=== PATIENT | female | born 1945 | race Caucasian/White ===

== ENCOUNTER → 2017-04-18 | Outpatient (CLI) | payer BC ==
[~2017-04-18] MED LIST: ACET1TAB84 PO; CALC500C70 PO; CITA10TA8 PO; FENT25DI2 TD; FISHOIL PO; FLX10 PO; GABA800T PO; MULT-506 PO; OXYC-57 PO; PRLSR20 PO; [UNRECOGNIZED DRUG - OTHER]
--- NOTE | 2017-04-18 14:13 | MAMMOGRAPHY REPORT ---
BILATERAL DIGITAL SCREENING MAMMOGRAM WITH CAD: 04/18/2017 CLINICAL HISTORY: Routine screening. TECHNIQUE: Current study was also evaluated with a Computer Aided Detection (CAD) system. Bilateral CC and MLO views were obtained. COMPARISON: Comparison is made to exams dated: 04/17/2016 mammogram, 04/14/2015 mammogram, 04/13/2014 mammogram, 04/09/2013 mammogram, 04/02/2012 mammogram, and 03/27/2011 mammogram - [facility]. BREAST COMPOSITION: There are scattered areas of fibroglandular density in both breasts. FINDINGS: No suspicious masses, calcifications, or areas of architectural distortion are noted in ei ther breast. There has been no significant interval change compared to prior exams. Bilateral asymme tries are stable compared to prior exams. IMPRESSION: ACR BI-RADS CATEGORY 2: BENIGN There is no mammographic evidence of malignancy. A 1 year screening mammogram is recommended. The pa tient will receive written notification of the results. Approximately 10% of breast cancers are not detected with mammography. A negative mammographic report should not delay biopsy if a clinically suggestive mass is present. Lashay Govea M.D. ah/:04/18/2017 12:44:43 Geophysical Prospecting Surveyor: Stephie SNIDER(Tiana)(M), [facility] letter sent: Normal 1/2 BI-RADS Code: ACR BI-RADS Category 2: Benign
== END | disposition home or self-care (01) ==
LOC: C.MAMM 12:05
PROVIDERS: ATTEND Family Medicine
DX: Z12.31 Encounter for screening mammogram for malignant neoplasm of breast (principal)

== ENCOUNTER 2019-07-15 08:06 | Inpatient (IN) ==
--- NOTE | 2019-06-08 15:41 | PAT Medication Instructions ---
Medication Instructions Date of Service June 08, 2019 Home Medications atorvastatin 20 mg tablet 20 mg PO QAM calcium carbonate-vitamin D3 250 mg-125 unit tablet 1 tab PO BID citalopram 20 mg tablet 20 mg PO QAM cyclobenzaprine 10 mg tablet 10 mg PO HS PRN fentanyl 25 mcg/hr transdermal patch 1 patch TD Q72H gabapentin 800 mg tablet 800 mg PO TID multivitamin 1 cap PO DAILY omega 3-iio-wkr-fish oil 120 mg-180 mg-500 mg capsule 1 cap PO DAILY omeprazole magnesium 20 mg tablet,delayed release 20 mg PO QAM oxycodone 5 mg tablet 5 mg PO QID PRN acetaminophen [Tylenol 8 Hour] 2 tab PO BID diclofenac sodium 1 applic TOPICAL UD PRN Continue as directed fentanyl 25 mcg/hr transdermal patch 1 patch TD Q72H (avoid placement over surgery site area) STOP taking 2 weeks before surgery (or as soon as possible if surgery is within 2 weeks) omega 4-ncn-neu-fish oil 120 mg-180 mg-500 mg capsule 1 cap PO DAILY DO NOT take the morning of surgery calcium carbonate-vitamin D3 250 mg-125 unit tablet 1 tab PO BID multivitamin 1 cap PO DAILY Take morning of surgery With a small sip of water, OTHERWISE NOTHING TO EAT OR DRINK AFTER MIDNIGHT: atorvastatin 20 mg tablet 20 mg PO QAM citalopram 20 mg tablet 20 mg PO QAM gabapentin 800 mg tablet 800 mg PO TID omeprazole magnesium 20 mg tablet,delayed release 20 mg PO QAM oxycodone 5 mg tablet 5 mg PO QID PRN (okay to take up to 4 hours prior to surgery if needed) acetaminophen [Tylenol 8 Hour] 2 tab PO BID (okay to take up to 4 hours prior to surgery if needed) Take evening before surgery calcium carbonate-vitamin D3 250 mg-125 unit tablet 1 tab PO BID cyclobenzaprine 10 mg tablet 10 mg PO HS PRN (if needed) gabapentin 800 mg tablet 800 mg PO TID oxycodone 5 mg tablet 5 mg PO QID PRN (if needed) acetaminophen [Tylenol 8 Hour] 2 tab PO BID Other Notes If you have any questions please call us at [phone] or [phone] or [phone] or [phone]
--- NOTE | 2019-06-09 14:15 | Anesthesiology Consultation ---
Date of Service June 09, 2019 Assessment & Plan (1) Encounter for pre-operative examination: - S/P Pain/spinal cord stimulator battery change/revision: 11/23/18: MAC sedation at [facility] Chart Review Chart Review: Acceptable Risk for Surgery and Patient seen in Pre Admission Testing Teaching & Discussion Pre-Anesthesia Teaching/Discussion Notes: Instructed NPO after midnight before surgery,except medications with 15 cc of water. Medication instructions provided according to the PAT guidelines. History Surgery Operation Date: 07/15/19 07:45 Proposed Procedures p Posterior Fusion Instrumentation - Ovidio Kelley DO Height/Weight Height: 5 ft 6.5 in Weight: 76.5 kg Allergies Allergy/AdvReac Type Severity Reaction Status Date / Time morphine AdvReac Unknown "does not Verified 06/09/19 14:08 work for pain control" METAL Allergy Mild Rash Uncoded 06/08/19 12:09 Medications Home Medications Medication Instructions Recorded Confirmed Last Taken atorvastatin 20 mg tablet 20 mg PO QAM 11/10/18 06/08/19 05/25/19 06:30 calcium carbonate-vitamin D3 250 1 tab PO BID tab 11/10/18 06/08/19 05/24/19 18:00 mg-125 unit tablet citalopram 20 mg tablet 20 mg PO QAM 11/10/18 06/08/19 05/22/19 cyclobenzaprine 10 mg tablet 10 mg PO HS PRN 11/10/18 06/08/19 05/22/19 fentanyl 25 mcg/hr transdermal 1 patch TD Q72H 11/10/18 06/08/19 05/25/19 06:30 patch gabapentin 800 mg tablet 800 mg PO TID 11/10/18 06/08/19 05/25/19 06:30 multivitamin 1 cap PO DAILY 11/10/18 06/08/19 05/25/19 06:30 omega 2-yfo-ybi-fish oil 120 1 cap PO DAILY cap 11/10/18 06/08/19 05/18/19 mg-180 mg-500 mg capsule omeprazole magnesium 20 mg 20 mg PO QAM 11/10/18 06/08/19 05/25/19 06:30 tablet,delayed release oxycodone 5 mg tablet 5 mg PO QID PRN tab 11/10/18 06/08/19 05/24/19 14:00 acetaminophen [Tylenol 8 Hour] 2 tab PO BID 11/17/18 06/08/19 05/25/19 06:30 diclofenac sodium 1 applic TOPICAL UD PRN 06/08/19 06/08/19 Unknown Past Medical History Medical History Anxiety Battery end of life of spinal cord stimulator placed 10 years ago, s/p battery revision/replacement 11/2018- patient advised to bring remote AM DOS/OR made aware Borderline high cholesterol Degenerative disc disease Lumbar radiculopathy, chronic + postlaminectomy syndrome/controlled with SCS Neuropathy + balance issues Exercise / Class Metabolic Activity III < 4 Walking/Shop/Light housework Past Family History Family History Son Family history of muscular dystrophy Other Past medical history not known due to adoption Past Surgical History Surgical History H/O dilation and curettage 2013 - LMA #3 History of colonoscopy History of lumbar spinal fusion subsequent hardware removal History of meniscectomy of right knee (Acute) repair of meniscus History of rotator cuff surgery right History of tonsillectomy Status post insertion of spinal cord stimulator 10 years ago; s/p battery revision/replacement 11/2018 (MAC sedation at [facility])/2018 Past Anesthesia History No Hx of Anesthesia Complications Limited family hx knowledge due to patient being adopted but son with hx of awareness with back surgery. History of PONV No Hx of PONV and No Hx of Motion Sickness Social History Smoking Status: Former smoker tobacco type: cigarettes Do You Dip or Chew Tobacco: No Smoking End Date: Quit 1982; hx from age [age], 6 cigarettes per day Hx Alcohol Use: Yes Alcohol type: wine alcohol intake frequency: holidays/special occasions only Hx Substance Use: No substance use type: does not use Review of Systems Patient denies chest pain, shortness of breath, cough, wheezing, palpitations. Physical Exam Vital Signs VITALS BP 134/78 P 76 TEMP 98.3 SP02 95%RA RESP 16 PHYSICAL Mildly decreased cervical extension Full TMJ range of motion. TMD 3.5 finger breaths Mallampati Score 2 Dentition: intact, upper front veneers Lungs: clear throughout to auscultation Cardiac: regular rate and rhythm, no murmurs noted Spine: normal Carotid arteries: negative bruit Extremities: no edema Testing Laboratory Results 06/09/19 14:54 06/09/19 14:54 PT 10.4 Seconds (9.0-12.0) 06/09/19 14:54 INR 1.0 (0.9-1.1) 06/09/19 14:54 APTT 28.2 Seconds (21.0-31.0) 06/09/19 14:54 Urine Color Yellow 06/09/19 Unknown Urine Appearance Clear (Clear) 06/09/19 Unknown Urine pH 5.0 (4.5-7.5) 06/09/19 Unknown Ur Specific [place] 1.015 (1.000-1.030) 06/09/19 Unknown Urine Protein Negative (Negative) 06/09/19 Unknown Urine Glucose (UA) Negative (Negative) 06/09/19 Unknown Urine Ketones Negative (Negative) 06/09/19 Unknown Urine Nitrite Negative (Negative) 06/09/19 Unknown Ur Leukocyte Esterase Negative (Negative) 06/09/19 Unknown Blood Type A Positive 06/09/19 14:54 Antibody Screen NEGATIVE 06/09/19 14:54 Electrocardiogram Date: 11/18/18 Findings: + NSR @ (68) Chest X-Ray Date: 06/09/19 Findings: + NAD
--- NOTE | 2019-06-09 15:20 | XRay Report ---
TWO VIEW CHEST CLINICAL HISTORY: Preoperative examination. FINDINGS: PA and lateral chest radiographs are obtained. No prior studies are available for compariso n at the time of dictation. The cardiomediastinal silhouette is unremarkable. The lungs and pleura l spaces are clear. There is no pneumothorax. The skeletal structures are osteopenic. The bony thorax appears intact. Intrathecal lead projects over the lower thoracic spine. IMPRESSION: No active disease in the chest. Electronically signed by: Johnson Cortez M.D. 06/09/2019 3:18 PM
[2019-06-09 15:42] LABS: Basophils # (auto) 0.03 K/uL (0-0.2); Basophils % (auto) 0.5 %; Eosinophils # (auto) 0.04 K/uL (0-0.5); Eosinophils % (auto) 0.6 %; Hematocrit (blood only) 39.3 % (37-47); Hemoglobin 12.4 g/dL (12.0-16.0); Immature Granulocytes # (auto) 0.01 K/uL (0.00-0.02); Immature Granulocytes % (auto) 0.2 %; Lymphocytes # (auto) 2.18 K/uL (1.2-3.4); Lymphocytes % (auto) 33.1 %; Mean Corpuscular Hemoglobin 28.3 pg (25-34); Mean Corpuscular Hgb Conc 31.6 g/dL (32-36); Mean Corpuscular Volume 89.7 fL (80-100); Mean Platelet Volume 10.7 fL (7.4-10.4); Monocytes # (auto) 0.46 K/uL (0.11-0.59); Neutrophils # (auto) 3.87 K/uL (1.4-6.5); Neutrophils % (auto) 58.6 %; Platelet Count 295 K/uL (130-400); RDW Coefficient of Variation 14.6 % (11.5-14.5); RDW Standard Deviation 47.9 fL (36.4-46.3); Red Blood Count 4.38 M/uL (4.2-5.4); White Blood Count 6.59 K/uL (4.8-10.8)
[2019-06-09 15:50] LABS: BUN Creatinine Ratio 27.2 (10-20); Est GFR (African American) 106.1; Est GFR (Non-African American) 91.6; Potassium 4.1 mmol/L (3.5-5.1)
[2019-06-09 15:52] LABS: Appearance Urine Clear (Clear); Bilirubin Urine Negative (Negative); Blood Urine Negative (Negative); Color Urine Yellow; Glucose Urine UA Negative (Negative); Ketones Urine Negative (Negative); Leukocyte Esterase Urine Negative (Negative); Nitrite Urine Negative (Negative); Protein Urine Negative (Negative); Specific Gravity Urine 1.015 (1.000-1.030); Urobilinogen Urine Negative (Negative)
[2019-06-09 15:54] LABS: Partial Thromboplastin Time 28.2 Seconds (21.0-31.0); Prothrombin Time 10.4 Seconds (9.0-12.0)
[~2019-07-15 08:06] MED LIST changes: -ACET1TAB84 PO; +ACETAMINOPHEN 500 MG TAB PO SCH; -CALC500C70 PO; +CEFAZOLIN 1000MG 1,000 MG/7.5 ML SYR IV SCH; -CITA10TA8 PO; +CeleBREX 200 MG CAP PO SCH; -FENT25DI2 TD; -FISHOIL PO; -FLX10 PO; -GABA800T PO; +GABAPENTIN 300 MG CAP PO SCH; +LR 15ML/HR IV SCH; -MULT-506 PO; -OXYC-57 PO; -PRLSR20 PO; -[UNRECOGNIZED DRUG - OTHER]
[2019-07-15] MEDS ORDERED: ONDANSETRON INJ 2 MG/ML 2 ML VIAL ONE ×2 (09:12→11:39)
[2019-07-15] MEDS ORDERED: GLYCOPYRROLATE 0.2 MG/ML VIAL ONE (09:12)
[2019-07-15] MEDS ORDERED: PROPOFOL IV EMULSION 10 MG/ML 20 ML VIAL IV ONE (09:12)
[2019-07-15] MEDS ORDERED: NEOSTIGMINE METHYLSULFATE 1 MG/ML 10ML VIAL ONE ×2 (09:12→10:43)
[2019-07-15] MEDS ORDERED: DEXAMETHASONE SOD INJ 4 MG/ML VIAL ONE ×2 (09:12→11:31)
[2019-07-15] MEDS ORDERED: LIDOCAINE HCL 2% 2 ML VIAL/AMP(20MG/ML) INFIL ONE (09:12)
[2019-07-15] MEDS ORDERED: fentaNYL citrate 100 MCG/2 ML VIAL ONE (09:13)
[2019-07-15] MEDS ORDERED: LARYING-O-JET KIT (LTA) ONE (09:13)
[2019-07-15] MEDS ORDERED: MIDAZOLAM HCL 1 MG/ML 2ML VIAL ONE (09:13)
[2019-07-15] MEDS ORDERED: ROCURONIUM BROMIDE 10 MG/ML 5 ML VIAL ONE (09:13)
[2019-07-15] MEDS ORDERED: HYDROmorphone INJ 2 MG/ML SYR/VIAL ONE (09:13)
[2019-07-15] MEDS ORDERED: SODIUM CHLORIDE 0.9% INJ 10 ML VIAL ONE (09:13)
[2019-07-15] MEDS ORDERED: ONDANSETRON INJ 2 MG/ML 2 ML VIAL IV PRN ×2 (09:20→14:07)
[2019-07-15] MEDS ORDERED: ePHEDrine sulfate 50 MG/ML AMP IV PRN (09:20)
[2019-07-15] MEDS ORDERED: ATROPINE SULFATE 0.1 MG/ML 10ML SYR IV PRN (09:20)
--- NOTE | 2019-07-15 09:37 | History & Physical Bridge Note ---
Date of Service July 15, 2019 History & Physical Bridge Note I have examined the patient, reviewed the History & Physical and in the interval since the performance of the History & Physical I have noted the following changes of clinical significance: no changes noted
--- NOTE | 2019-07-15 09:38 | History & Physical Report ---
Date of Service July 15, 2019 Assessment & Plan (1) Neurogenic claudication due to lumbar spinal stenosis: L2-L3 transforaminal lumbar interbody fusion Present on Admission?: Yes History of Present Illness Chief Complaint: Back and leg pain Primary Care Provider: Chepe Blanc, This is a 74-year-old female who presents with back and leg pain. After failing extensive course of nonoperative care is here for surgical intervention. Allergies Allergy/AdvReac Type Severity Reaction Status Date / Time morphine AdvReac Unknown "does not Verified 07/15/19 08:22 work for pain control" METAL Allergy Mild Rash Uncoded 07/15/19 08:22 Home Medications Home Medications Medication Instructions Recorded Confirmed Type atorvastatin 20 mg tablet 20 mg PO QAM 11/10/18 07/15/19 History calcium carbonate-vitamin D3 250 1 tab PO BID tab 11/10/18 07/15/19 History mg-125 unit tablet citalopram 20 mg tablet 20 mg PO QAM 11/10/18 07/15/19 History cyclobenzaprine 10 mg tablet 10 mg PO HS PRN 11/10/18 07/15/19 History fentanyl 25 mcg/hr transdermal 1 patch TD Q72H 11/10/18 07/15/19 History patch gabapentin 800 mg tablet 800 mg PO TID 11/10/18 07/15/19 History multivitamin 1 cap PO DAILY 11/10/18 07/15/19 History omega 3-kjf-swk-fish oil 120 1 cap PO DAILY cap 11/10/18 07/15/19 History mg-180 mg-500 mg capsule omeprazole magnesium 20 mg 20 mg PO QAM 11/10/18 07/15/19 History tablet,delayed release oxycodone 5 mg tablet 5 mg PO QID PRN tab 11/10/18 07/15/19 History acetaminophen [Tylenol 8 Hour] 2 tab PO BID 11/17/18 07/15/19 History diclofenac sodium 1 applic TOPICAL UD PRN 06/08/19 07/15/19 History Past Med/Surg History Medical History Anxiety Battery end of life of spinal cord stimulator placed 10 years ago, s/p battery revision/replacement 11/2018- patient advised to bring remote AM DOS/OR made aware Borderline high cholesterol Degenerative disc disease Lumbar radiculopathy, chronic + postlaminectomy syndrome/controlled with SCS Neuropathy + balance issues Surgical History H/O dilation and curettage 2013 - LMA #3 History of colonoscopy History of lumbar spinal fusion subsequent hardware removal History of meniscectomy of right knee (Acute) repair of meniscus History of rotator cuff surgery right History of tonsillectomy Status post insertion of spinal cord stimulator 10 years ago; s/p battery revision/replacement 11/2018 (MAC sedation at [facility])/2018 Family History Son Family history of muscular dystrophy Other Past medical history not known due to adoption Social History (Updated 11/10/18 @ 11:13 by Anabela Allen RN) Preferred Language: Luxembourger Communication Ability: Effective Visual Impairment: Limited Hearing Ability: Normal Facilities Locator Required: No Beliefs That Will Affect Care: None marital status: Current Living Situation: Spouse current occupational status: employed and retired 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 Results & Data Vital Signs (Past 12 Hours) Vital Signs Temp Pulse Resp BP Pulse Ox 07/15/19 08:31 36.8 C 72 18 154/85 H 98
[2019-07-15] MEDS ORDERED: BACITRACIN INJ 50,000 UNIT VIAL ONE (09:52)
[2019-07-15] MEDS ORDERED: BUPIVACAINE/EPINEPHRINE 0.5% MPF 1:200,000 10 ML VIAL ONE (09:52)
[2019-07-15] MEDS ORDERED: ePHEDrine sulfate 50 MG/ML SYR ONE (10:32)
--- NOTE | 2019-07-15 11:41 | Operative Report ---
Post Operative Report Pre & Post Diagnosis Operation Date: 07/15/19 10:05 Pre-Op Diagnosis: Neurogenic claudication due to lumbar spinal stenosis Post-Op Diagnosis: Neurogenic claudication due to lumbar spinal stenosis I identified the patient and participated in the time-out.: Yes Procedure Operation Date: 07/15/19 10:05 Actual Procedures #1 lumbar decompression with bilateral medial facetectomies foraminotomies L2-3. #2 posterior spinal fusion L2-3. #3 placement posterior instrumentation L2-3. #4 interbody fusion L2-3. #5 placed a peek cage 11 x 22 mm at L2-3. #6 placement of locally harvested morselized autograft in the posterior lateral gutters. #7 placement infuse collagen sponge, master graft in the posterior gutters and ostial amp interbody space. Surgeon Ovidio Kelley DO Excavating Machine Operator Annalise Clemente Estimated Blood Loss 100 Findings Consistent with Post-Op Diagnosis Specimens None Indications This is a 74-year-old female that presents with above-mentioned diagnosis after failing extensive course of nonoperative care is here for surgical intervention. Description of Procedure Patient was met with identified informed consent obtained. Patient was then taken to the operative suite underwent an patient placed in a prone position the Glenn table on top of the Alexi frame. All bony prominences well-padded eyes inspected to ensure no external pressure placed upon the peer at this point the lumbar spine was prepped and draped in normal sterile fashion. Sharp dissection with the assistance of Bovie cautery was performed down to and exposing the lamina and transverse processes of L2 and L3 bilaterally. From a caudal cephalad fashion complete laminectomy of L2 was performed including bilateral medial facetectomies and foraminotomies addressing severe stenosis. Pedicle screws were then placed in L2 and L3 bilaterally with assistance of fluoroscopy and appropriately sized husam placed. By way of a transforaminal approach on the right complete discectomy was performed endplates curetted to subcortical bleeding bone and an 11 x 22 mm peek cage filled with osteo-bone graft tapped in position. The rods were then compressed locked in final position bilaterally. The transverse processes of L2 and L3 burred to subcortical bleeding bone. Inf use collagen sponge master graft local autograft placed in the posterior lateral gutters. 15 round DEION drain inserted. The incision was then closed with 1 Vicryl in the fascia 2-0 Vicryl subcutaneously and 4 Monocryl for final skin closure. Steri-Strips dressings placed. Patient will continue to PACU stable condition. Please note spinal cord monitoring was utilized that the procedure no changes noted. Lastly Annalise Clemente was present at the entire procedure involved the patient positioning complex portions of the surgery and final skin closure. I attest to the content of the Intraoperative Record and any orders documented therein. Any exceptions are noted below.
[2019-07-15] MEDS: fentaNYL citrate 100 MCG/2 ML VIAL IV PRN ×4 (12:11→12:26)
--- NOTE | 2019-07-15 12:14 | Fluoroscopy Report ---
FL lumbar spine 2-3V CLINICAL HISTORY: L2-L3 FUSION COMPARISON STUDY: 05/25/2019 FLUOROSCOPY TIME: 17 seconds. NUMBER OF FLUOROSCOPIC IMAGES: 2 FINDINGS: 2 intraoperative fluoroscopic spot images are provided for interpretation. These demonstrat e evidence for an interval L2-3 discectomy and interbody fusion with posterior pedicle screw fixation . IMPRESSION: Intraoperative fluoroscopic radiographs demonstrating evidence of an L2-3 lumbar discect agnes and interbody fusion and posterior pedicle screw fixation ACT 112: Negative or not required by law. Electronically signed by: William Haynes M.D. 07/15/2019 12:13 PM
[2019-07-15] MEDS: HYDROmorphone INJ 1 MG/ML SYRINGE IV PRN ×14 (12:31→23:10)
[2019-07-15] MEDS ORDERED: HYDROmorphone INJ 0.5 MG/0.5 ML SYR IV PRN ×2 (13:13→14:07)
[2019-07-15] MEDS ORDERED: SOD PHOSPHATE/SOD BIPHOSPHATE ENEMA 132 ML BTL PR PRN (14:07)
[2019-07-15] MEDS ORDERED: ACETAMINOPHEN 1,000 MG/100 ML VIAL IV PRN (14:07)
[2019-07-15] MEDS ORDERED: DO NOT ADMINISTER PNEUMOCOCCAL VACCINE PRN (14:07)
[2019-07-15] MEDS ORDERED: METOCLOPRAMIDE HCL INJ 5 MG/ML 2 ML VIAL IV PRN (14:07)
[2019-07-15] MEDS ORDERED: LORazepam 0.5 MG TAB PO PRN (14:07)
[2019-07-15] MEDS ORDERED: FAMOTIDINE 20 MG TAB PO PRN (14:07)
[2019-07-15] MEDS ORDERED: ONDANSETRON 4 MG OD TAB PO PRN (14:07)
[2019-07-15] MEDS ORDERED: DO NOT ADMINISTER FLU VACCINE PRN (14:07)
[2019-07-15] MEDS ORDERED: bisacodyL 10 MG SUPP PR PRN (14:07)
[2019-07-15] MEDS ORDERED: LORazepam 0.5 MG/1 ML VIAL IV PRN (14:07)
[2019-07-15] MEDS ORDERED: ALUMINUM/MAGNESIUM SUSP 30 ML UDC PO PRN (14:07)
[2019-07-15] MEDS ORDERED: NALOXONE HCL 0.4 MG/1 ML VIAL/CARP IV PRN (14:07)
[2019-07-15] MEDS ORDERED: MAGNESIUM HYDROXIDE SUSP 30 ML UDC PO PRN (14:07)
[2019-07-15] MEDS ORDERED: TRAMADOL HCL 50 MG TABLET PO PRN (14:07)
[2019-07-15] MEDS ORDERED: PROMETHAZINE HCL 12.5 MG in SODIUM CHLORIDE 0.9% 50 ML IV PRN (14:30)
--- NOTE | 2019-07-15 14:55 | Anesthesiology Progress Note ---
Date of Service July 15, 2019 Anesthesia Post Procedure Vital Signs Vital Signs: Temp Pulse Pulse Pulse Resp BP Pulse Ox 07/15/19 14:08 36.7 C 88 14 132/79 97 07/15/19 13:50 91 H 20 146/83 H 96 07/15/19 13:40 36.4 C L 90 16 146/87 H 96 07/15/19 13:30 91 H 16 149/88 H 96 07/15/19 13:20 87 16 139/92 98 07/15/19 13:10 82 12 146/77 H 96 07/15/19 13:00 87 17 151/80 H 97 07/15/19 12:50 84 16 145/76 H 97 07/15/19 12:40 89 15 136/81 97 07/15/19 12:30 89 18 153/79 H 97 07/15/19 12:20 87 16 143/73 H 97 07/15/19 12:10 85 12 134/81 97 07/15/19 12:00 83 14 137/67 99 07/15/19 11:54 36.5 C 85 16 139/78 100 07/15/19 08:31 36.8 C 72 18 154/85 H 98 Pain Intensity Lower Back: Pain Intensity: 8 Transfer of Care Handoff Completed per policy Notes Mental Status: alert / awake / arousable and participated in evaluation Patient Amnestic to Procedure: Yes Nausea / Vomiting: adequately controlled Pain: improving with treatment (Patient with chronic pain and appears comfortable despite high pain score. ) Airway Patency, RR, SpO2: stable & adequate BP & HR: stable & adequate Hydration State: stable & adequate Anesthetic Complications: no major complications apparent and Pt Satisfied with anesthetic care
[2019-07-15] MEDS: CHECK FENTANYL PATCH PLACEMENT SCH ×2 (16:56→23:14)
[2019-07-15] MEDS: OXYCODONE HCL IR 5 MG TAB (IMMEDIATE RELEASE) PO PRN ×2 (17:11→21:45)
[2019-07-15] MEDS: SODIUM CHLORIDE 0.9% 1000ML 1,000 ML IV SCH (17:12)
[2019-07-15] MEDS: GABAPENTIN 800 MG TAB PO SCH ×2 (17:13→21:46)
[2019-07-15] MEDS: CEFAZOLIN 1000MG 1,000 MG/7.5 ML SYR IV SCH (17:13)
[2019-07-15] MEDS: CALCIUM 600MG + VIT D 400 IU TAB PO SCH (21:47)
[2019-07-15] MEDS: DOCUSATE SODIUM/SENNA 50/8.6MG TAB PO SCH (21:47)
[2019-07-16] MEDS: OXYCODONE HCL IR 5 MG TAB (IMMEDIATE RELEASE) PO PRN ×5 (02:13→20:08)
[2019-07-16] MEDS: CEFAZOLIN 1000MG 1,000 MG/7.5 ML SYR IV SCH (02:14)
[2019-07-16] MEDS: HYDROmorphone INJ 1 MG/ML SYRINGE IV PRN ×2 (04:23→23:11)
[2019-07-16] MEDS: SODIUM CHLORIDE 0.9% 1000ML 1,000 ML IV SCH (04:31)
[2019-07-16 05:42] LABS: Basophils # (auto) 0.01 K/uL (0-0.2); Basophils % (auto) 0.1 %; Hematocrit (blood only) 33.9 % (37-47); Immature Granulocytes # (auto) 0.03 K/uL (0.00-0.02); Immature Granulocytes % (auto) 0.2 %; Lymphocytes # (auto) 1.51 K/uL (1.2-3.4); Lymphocytes % (auto) 12.3 %; Mean Corpuscular Hemoglobin 28.7 pg (25-34); Mean Corpuscular Hgb Conc 32.4 g/dL (32-36); Mean Corpuscular Volume 88.5 fL (80-100); Mean Platelet Volume 10.3 fL (7.4-10.4); Monocytes # (auto) 0.94 K/uL (0.11-0.59); Monocytes % (auto) 7.7 %; Neutrophils # (auto) 9.78 K/uL (1.4-6.5); Neutrophils % (auto) 79.7 %; Platelet Count 271 K/uL (130-400); RDW Coefficient of Variation 14.7 % (11.5-14.5); RDW Standard Deviation 47.7 fL (36.4-46.3); Red Blood Count 3.83 M/uL (4.2-5.4); White Blood Count 12.27 K/uL (4.8-10.8)
[2019-07-16 06:20] LABS: BUN Creatinine Ratio 25.2 (10-20); Calcium 8.7 mg/dl (8.5-10.1); Creatinine Clr Calc Pharmacy 96.8 ml/min; Est GFR (African American) 107.8; Est GFR (Non-African American) 93.1; Potassium 4.1 mmol/L (3.5-5.1)
[2019-07-16] MEDS: POLYETHYLENE (MIRALAX) 17 GM PACK PO SCH ×4 (06:28→23:11)
[2019-07-16] MEDS: CHECK FENTANYL PATCH PLACEMENT SCH ×3 (07:27→23:11)
[2019-07-16] MEDS: CALCIUM 600MG + VIT D 400 IU TAB PO SCH ×2 (08:30→20:09)
[2019-07-16] MEDS: GABAPENTIN 800 MG TAB PO SCH ×3 (08:31→20:09)
[2019-07-16] MEDS: CITALOPRAM 20 MG TAB PO SCH (08:31)
[2019-07-16] MEDS: PANTOprazole 40 MG TAB PO SCH (08:31)
[2019-07-16] MEDS: ATORVASTATIN 20 MG TAB PO SCH (08:31)
--- NOTE | 2019-07-16 15:14 | Orthopedic Progress Note ---
Date of Service July 16, 2019 Assessment & Plan (1) Neurogenic claudication due to lumbar spinal stenosis: At this time continue physical therapy monitor her DEION output anticipate discharge home this weekend. Present on Admission?: Yes Subjective Leg pain is improved back pain controlled. Physical Exam Physical Exam: Patient is good strength testing appears comfortable. Results & Data Vital Signs (Past 12 Hours) Vital Signs Temp Pulse Pulse Resp BP BP Pulse Ox 07/16/19 12:15 36.7 C 67 12 144/86 H 98 07/16/19 07:45 36.7 C 73 14 144/88 H 95 07/16/19 04:00 36.7 C 75 17 124/75 96
[2019-07-16] MEDS: ACETAMINOPHEN 500 MG TAB PO PRN (18:10)
[2019-07-16] MEDS: CYCLOBENZAPRINE HCL 10 MG TAB PO PRN (20:08)
[2019-07-16] MEDS: DOCUSATE SODIUM/SENNA 50/8.6MG TAB PO SCH (20:09)
[2019-07-17] MEDS: OXYCODONE HCL IR 5 MG TAB (IMMEDIATE RELEASE) PO PRN ×5 (03:28→23:33)
[2019-07-17] MEDS: POLYETHYLENE (MIRALAX) 17 GM PACK PO SCH ×3 (05:21→17:41)
[2019-07-17] MEDS: HYDROmorphone INJ 1 MG/ML SYRINGE IV PRN ×4 (05:22→19:51)
[2019-07-17] MEDS: CHECK FENTANYL PATCH PLACEMENT SCH ×3 (07:32→23:33)
[2019-07-17] MEDS: CITALOPRAM 20 MG TAB PO SCH (08:22)
[2019-07-17] MEDS: PANTOprazole 40 MG TAB PO SCH (08:22)
[2019-07-17] MEDS: CALCIUM 600MG + VIT D 400 IU TAB PO SCH ×2 (08:22→21:27)
[2019-07-17] MEDS: GABAPENTIN 800 MG TAB PO SCH ×3 (08:23→21:26)
[2019-07-17] MEDS: ATORVASTATIN 20 MG TAB PO SCH (08:24)
--- NOTE | 2019-07-17 09:46 | Orthopedic Progress Note ---
Date of Service July 17, 2019 Assessment & Plan (1) Neurogenic claudication due to lumbar spinal stenosis: We will continue physical therapy today monitor her DEION output anticipate discharge home tomorrow. Present on Admission?: Yes Subjective Back pain controlled leg pain markedly improved. Physical Exam Physical Exam: Patient is good strength testing was comfortable. Results & Data Vital Signs (Past 12 Hours) Vital Signs Temp Pulse Resp BP Pulse Ox 07/17/19 06:36 36.9 C 80 14 121/76 94 07/16/19 23:30 36.8 C 85 14 130/76 96
[2019-07-17] MEDS: ACETAMINOPHEN 500 MG TAB PO PRN ×2 (13:23→21:28)
[2019-07-17] MEDS: DOCUSATE SODIUM/SENNA 50/8.6MG TAB PO SCH (21:26)
[2019-07-17] MEDS: CYCLOBENZAPRINE HCL 10 MG TAB PO PRN (21:28)
[2019-07-18] MEDS: OXYCODONE HCL IR 5 MG TAB (IMMEDIATE RELEASE) PO PRN ×3 (03:48→11:46)
[2019-07-18] MEDS: ACETAMINOPHEN 500 MG TAB PO PRN (05:50)
[2019-07-18] MEDS: CHECK FENTANYL PATCH PLACEMENT SCH (07:32)
[2019-07-18] MEDS: PANTOprazole 40 MG TAB PO SCH (07:46)
[2019-07-18] MEDS: GABAPENTIN 800 MG TAB PO SCH (07:46)
[2019-07-18] MEDS: CITALOPRAM 20 MG TAB PO SCH (07:46)
[2019-07-18] MEDS: CALCIUM 600MG + VIT D 400 IU TAB PO SCH (07:46)
[2019-07-18] MEDS: ATORVASTATIN 20 MG TAB PO SCH (07:46)
[2019-07-18] MEDS ORDERED: fentaNYL 25 MCG/HR TDSY TD SCH (09:00)
--- NOTE | 2019-07-18 11:25 | Discharge Summary ---
Date of Service July 18, 2019 Admission HPI Per Admitting Provider This is a 74-year-old female who presents with back and leg pain. After failing extensive course of nonoperative care is here for surgical intervention. Principal Diagnosis Lumbar spinal stenosis with neurogenic claudication Discharge Data Allergies Allergy/AdvReac Type Severity Reaction Status Date / Time contact metal agent Allergy Mild Rash Verified 07/15/19 14:22 morphine AdvReac Unknown "does not Verified 07/15/19 08:22 work for pain control" Consultations 07/15/19 14:07 Consult Case Management - Discharge Planning Routine Procedures Performed Operation Date: 07/15/19 10:05 Actual Procedures p L2-L3 Transforaminal Lumbar Interbody Fusion, peek cage inserted L2-L3, use of osteamp, use of infuse, Spinal Cord Monitoring(Not Applicable) - Ovidio Kelley DO Ordered Studies 07/15/19 10:05 FL fluoroscopy <1hr Routine FL lumbar spine 2-3V Routine Hospital Course (1) Neurogenic claudication due to lumbar spinal stenosis: Patient went lumbar decompression fusion tolerated well second orthopedic for postoperative postop day #1 she is up and ambulating leg pain improved progressed to postop day #2 on postop day 3 DEION drain decreased probably pain leg pain improved subsequently discharged home. Discharge orders instructions from the chart for further review. Total Time Total Time Spent Total Time Spent (In Minutes): 20 minutes Discharge Plan Discharge Items Patient Disposition: Home - Self-Care Reason For Visit: LUMBAR INTERVERTEBRAL DISC DISORDERS W/RADICULOPAT Discharge Diagnosis: Lumbar spinal stenosis with neurogenic claudication Activity: As commented below Non-emergency contact: Primary Care Provider Call non-emergency contact if: you have any medication questions Follow-up/Referrals: Chepe Blanc DO [Primary Care Provider] - Diet: Regular Addtl Attending Provider Instructions: ACTIVITY RECOMMENDATIONS: SELF CARE INSTRUCTIONS AFTER THORACIC/LUMBAR FUSIONS 1. You may walk to your tolerance. It is good exercise for your legs and back. Expect some back and intermittent leg aches and pains. 2. You may perform "counter-top" level activities (make a sandwich, gina with a project, etc.). 3. No bending or lifting of more than 10 pounds or back twisting of any nature (roll like a log when turning in bed). 4. You may ride in a car for 20-30 minutes at a time. No driving until after your first visit with your doctor. 5. Frequent changes of position and restricting sitting to 30 minutes at a time will help limit the amount of back spasms and stiffness you may experience. 6. You may discontinue the use of ambulatory aids (cane, crutches, etc.) once your strength and confidence allow. 7. You may stitcher standard machine the shower and let water strike your incision when you arrive home at least once daily. Do not take a tub bath, sit in a hot tub or go into a swimming pool until after your first recheck in the office. SPECIAL CARE INSTRUCTIONS: VERY IMPORTANT TO READ AND REVIEW A. Your surgical incision has been closed with a cosmetic suture under the skin that will dissolve in about 6 weeks. In 14 days, you can use a pair of clean scissors and cut the suture that is left outside of the skin at the ends of your incision. 1. The small skin tapes can be removed 7 days after surgery if they have not fallen off by that point. 2. You may keep the wound open to air as much as possible to promote healing after post-op day number 5 unless told otherwise by your doctor. 3. If you think the wound looks like it is becoming infected (redness or worsening drainage) and/or you are experiencing fever, chill or worsening back pain and muscle spasms, contact the office so that we may evaluate you as soon as possible. B. Complications are uncommon, but please contact us if you have any signs or symptoms of: 1. wound infection (fever higher than 102.5 degrees F, redness, separation of wound, drainage, or increasing pain from the incision) 2. blood clots in legs (pain, swelling, redness and warmth in legs) 3. urinary tract infection (fever higher than 102.5 degrees F, burning upon urination or increased frequency of urination) 4. nerve problems (inability to walk on your toes or heels, numbness, loss of bowel or bladder control) 5. any other symptoms that concern you C. Please call the office at if you have any concerns or questions about your operation or recovery. D. No smoking! Smoking drastically decreases the chance of a solid fusion. E. Do not take any anti-inflammatory medications (Indocin, Advil, Motrin, Aspirin, Naprosyn, etc.) as these may inhibit the chance of a solid fusion. Tylenol is okay to take for pain. MANAGING PAIN AFTER SPINAL SURGERY 1. Narcotic medication is intended for short-term use and will be provided for surgical pain. Surgical pain usually lasts for a period of 4-6 weeks. Narcotic medication includes Percocet, Vicodin, Darvocet, Tylenol #3 or Lortab. 2. Longer-term pain is more appropriately treated with non-narcotic medication such as Tylenol ES. 3. Muscle spasm is not appropriately treated with narcotics. Muscle relaxers such as Soma, Flexeril or Skelaxin can be used along with Tylenol ES. 4. Remember that we all live with some "aches and pains". This is not unusual or uncommon after an injury or as we get older. a. Back pain is expected and may include muscle spasms for 4 to 6 weeks after surgery. The pain should gradually improve. If the pain worsens for no apparent reason, please contact the office. b. Intermittent leg pain may also be experienced and should not be concerned about unless it worsens for no apparent reason. If so, please contact the office. 5. We will provide appropriate medication within the normal guidelines of their prescribed use. We will also be very cautious and aware of potential abuse and extended duration of patients' medication needs. a. Pain medications are for your comfort and to assist with sleep and rest so that the tissue can heal. They are not provided in order to return to normal activity and should not be used through the day. To do so or worsening pain at night can result from ongoing tissue damage and development of tolerance to the prescribed medicine. 6. Please allow 2-3 days to process refills. Prescriptions will not be mailed but must be picked up at the office. FOLLOW UP VISIT: Keep your scheduled follow-up appointment. Any questions, please call the office at . Pending Studies at Discharge: No Stand-Alone Forms: My [employer], Smoking Cessation Medications and DC Order Prescriptions: New tramadol 50 mg tablet 50 mg PO Q6H PRN (Reason: pain, moderate) Qty: 30 RF: 0 oxycodone 5 mg tablet 5 mg PO Q6H PRN (Reason: pain, severe) Qty: 30 RF: 0 Continued fentanyl 25 mcg/hr patch 72 hour 1 patch TD Q72H RF: 0 gabapentin 800 mg tablet 800 mg PO TID RF: 0 Prilosec OTC 20 mg tablet,delayed release (DR/EC) 20 mg PO QAM RF: 0 citalopram [Celexa] 20 mg tablet 20 mg PO QAM RF: 0 atorvastatin [Lipitor] 20 mg tablet 20 mg PO QAM RF: 0 cyclobenzaprine 10 mg tablet 10 mg PO HS PRN (Reason: MUSCLE SPASMS) RF: 0 oxycodone 5 mg tablet 5 mg PO QID PRN (Reason: Pain) RF: 0 multivitamin capsule 1 cap PO DAILY RF: 0 Fish Oil 120-180-500 mg capsule 1 cap PO DAILY RF: 0 calcium carbonate-vitamin D3 250-125 mg-unit tablet 1 tab PO BID RF: 0 diclofenac sodium 3 % Gel 1 applic TOPICAL UD PRN (Reason: Back Pain) RF: 0 acetaminophen [Tylenol 8 Hour] 650 mg Tablet Extended Release 2 tab PO BID RF: 0 Discharge Orders: Discharge Order (Routine); Ordered 07/18/19 Ordered By: Ovidio Kelley Admission Data Admit Date/Time: 07/15/19 12:07 Attending Provider: Ovidio Kelley Admit Provider: Ovidio Kelley Primary Care Provider: Chepe Blanc Other Interventions: Discharge Summary Assessment (RN) Last Done: 07/18/19 10:33
[2019-07-18] MEDS ORDERED: OXYCODONE IR HOME PACK PO ONE (11:57)
== END 2019-07-18 12:48 | disposition home or self-care (01) | DRG 455 ==
LOC: ASU 08:06 → 3E 12:07

== ENCOUNTER 2019-07-28 13:29 | Observation (INO) ==
[2019-07-28] MEDS ORDERED: HYDROmorphone INJ 1 MG/ML SYRINGE IV STA ×2 (13:52→16:15)
[2019-07-28] MEDS ORDERED: ACETAMINOPHEN 500 MG TAB PO STA (13:52)
[2019-07-28] MEDS ORDERED: methylPREDNISolone 125 MG/2 ML VIAL IV STA (13:52)
[2019-07-28] MEDS ORDERED: SODIUM CHLORIDE 0.9% 500 ML IV SCH (14:00)
[2019-07-28 14:09] LABS: Basophils # (auto) 0.03 K/uL (0-0.2); Basophils % (auto) 0.4 %; Eosinophils # (auto) 0.11 K/uL (0-0.5); Eosinophils % (auto) 1.5 %; Hematocrit (blood only) 34.6 % (37-47); Hemoglobin 10.9 g/dL (12.0-16.0); Immature Granulocytes # (auto) 0.02 K/uL (0.00-0.02); Immature Granulocytes % (auto) 0.3 %; Lymphocytes # (auto) 2.38 K/uL (1.2-3.4); Lymphocytes % (auto) 32.2 %; Mean Corpuscular Hgb Conc 31.5 g/dL (32-36); Mean Corpuscular Volume 88.9 fL (80-100); Mean Platelet Volume 9.6 fL (7.4-10.4); Monocytes # (auto) 0.54 K/uL (0.11-0.59); Monocytes % (auto) 7.3 %; Neutrophils % (auto) 58.3 %; Platelet Count 358 K/uL (130-400); RDW Coefficient of Variation 14.1 % (11.5-14.5); Red Blood Count 3.89 M/uL (4.2-5.4); White Blood Count 7.38 K/uL (4.8-10.8)
[2019-07-28 14:27] LABS: BUN Creatinine Ratio 24.9 (10-20); Blood Urea Nitrogen 13 mg/dl (7-18); Calcium 8.8 mg/dl (8.5-10.1); Carbon Dioxide 29 mmol/L (21-32); Chloride 106 mmol/L (98-107); Est GFR (African American) 108.5; Est GFR (Non-African American) 93.6; Glucose 91 mg/dl (70-99); Potassium 4.3 mmol/L (3.5-5.1); Sodium 138 mmol/L (136-145)
[2019-07-28] MEDS ORDERED: KETOROLAC 30 MG/ML VIAL IV STA (15:17)
[2019-07-28] MEDS ORDERED: METHOCARBAMOL 100 MG/ML 10 ML VIAL IV STA ×2 (15:17→16:14)
--- NOTE | 2019-07-28 15:17 | XRay Report ---
XR lumbar spine 2-3V CLINICAL HISTORY: recent fusion, persistent pain, no deficits COMPARISON STUDY: Lumbar myelogram May 25, 2019. FINDINGS: Interval L2-L3 discectomy with interbody spacer placement and a posterior decompression wit h bilateral pedicle screw fusion is noted. Previous L3-S1 discectomy with interbody spacer placement as noted. No acute lumbar spine fracture is noted. Hardware is intact. Spinal stimulator is noted. Th ere is mild leftward curvature of the lumbar spine which is unchanged. IMPRESSION: 1. No acute lumbar spine fracture or subluxation. 2. Status post interval L2-L3 discectomy, posterior decompression bilateral pedicle screw fusion. Chace kimberly intact. ACT 112: Negative or not required by law. Electronically signed by: Anam Irizarry M.D. 07/28/2019 3:16 PM
[2019-07-28] MEDS ORDERED: METHOCARBAMOL 750 MG TABLET PO STA (16:28)
[2019-07-28] MEDS ORDERED: METHOCARBAMOL IV ONE (16:30)
[2019-07-28] MEDS ORDERED: DEXTROSE 5% IV ONE (16:30)
[2019-07-28] MEDS ORDERED: LORazepam 1 MG/2 ML VIAL IV PRN (18:10)
[2019-07-28] MEDS ORDERED: ONDANSETRON INJ 2 MG/ML 2 ML VIAL IV PRN (18:10)
[2019-07-28] MEDS ORDERED: ACETAMINOPHEN 500 MG TAB PO PRN (18:10)
[2019-07-28] MEDS ORDERED: HYDROmorphone INJ 1 MG/ML SYRINGE IV PRN (18:10)
[2019-07-28] MEDS ORDERED: METOCLOPRAMIDE HCL INJ 5 MG/ML 2 ML VIAL IV PRN (18:10)
[2019-07-28] MEDS ORDERED: ONDANSETRON 4 MG OD TAB PO PRN (18:10)
[2019-07-28] MEDS ORDERED: PROMETHAZINE HCL 12.5 MG in SODIUM CHLORIDE 0.9% 50 ML IV PRN (18:10)
[2019-07-28] MEDS ORDERED: LORazepam 1 MG TAB PO PRN (18:10)
--- NOTE | 2019-07-28 18:41 | Emergency Department Note ---
Entered by Raúl Cardenas acting as a scribe for History of Present Illness General Chief complaint: Back Injury/Pain Stated complaint: BACK PAIN Time Seen by Provider: 07/28/19 13:39 Source: patient Limitations: no limitations History of Present Illness Location: back Pain Consistency: + constant Maximum Pain Intensity: 10 Quality: + constant Relieved By: + none Exacerbated By: + none Associated symptoms: + denies other symptoms (urinary symptoms, bowel problems, nausea, vomiting, abdominal pain, trauma, falls); no fever/chills, no loss of appetite and no nausea/vomiting The patient is a 74 year-old white female w/ PMHx neurogenic claudication due to lumbar stenosis, status post insertion of spinal cord stimulator, status post hardware removal, hx of tonsillectomy, hx of rotator cuff surgery, hx of colonoscopy, hx of dilation and curettage, depression, lumbar radiculopathy, ac id reflux, lumbar postlaminectomy syndrome, neuropathy, chronic low back pain, anxiety, degenerative disc disease, who presents to the ED w/ CC of constant low back pain. The patient states she has had low back pain for decades. She states she has been using a fentanyl patch, 25 micrograms for years. She notes her PCP has recently increased the fentanyl to 50 micrograms, but she notes that did not help. She notes she had a back surgery on July [address] Kelley - Orthopedic Surgery. She states nothing makes the pain better or worse. The patient denies fevers, chills, trauma, falls, urinary symptoms, bowel problems, nausea, vomiting, abdominal pain, and loss of appetite. She states she follows with Dr. Hagen for pain management. She notes her PCP is Dr. Blanc. Home Medications Home Medications Medication Instructions Recorded Confirmed Type atorvastatin 20 mg tablet 20 mg PO QAM 11/10/18 07/28/19 History calcium carbonate-vitamin D3 250 1 tab PO BID tab 11/10/18 07/28/19 History mg-125 unit tablet citalopram 20 mg tablet 20 mg PO QAM 11/10/18 07/28/19 History cyclobenzaprine 10 mg tablet 10 mg PO HS PRN 11/10/18 07/28/19 History fentanyl 25 mcg/hr transdermal 1 patch TD Q72H 11/10/18 07/28/19 History patch gabapentin 800 mg tablet 800 mg PO TID 11/10/18 07/28/19 History multivitamin 1 cap PO DAILY 11/10/18 07/28/19 History omega 7-kzs-odq-fish oil 120 1 cap PO DAILY cap 11/10/18 07/28/19 History mg-180 mg-500 mg capsule omeprazole magnesium 20 mg 20 mg PO QAM 11/10/18 07/28/19 History tablet,delayed release acetaminophen [Tylenol 8 Hour] 2 tab PO BID 11/17/18 07/28/19 History diclofenac sodium 1 applic TOPICAL UD PRN 06/08/19 07/28/19 History oxycodone 5 mg PO Q6H PRN #30 tab 07/18/19 07/28/19 Rx Allergies Allergy/AdvReac Type Severity Reaction Status Date / Time contact metal agent Allergy Mild Rash Verified 07/28/19 14:47 morphine AdvReac Unknown "does not Verified 07/28/19 14:47 work for pain control" Past Med/Surg History Medical History Anxiety Battery end of life of spinal cord stimulator placed 10 years ago, s/p battery revision/replacement 11/2018- patient advised to bring remote AM DOS/OR made aware Borderline high cholesterol Degenerative disc disease Lumbar radiculopathy, chronic + postlaminectomy syndrome/controlled with SCS Neuropathy + balance issues Surgical History H/O dilation and curettage 2013 - LMA #3 History of colonoscopy History of lumbar spinal fusion subsequent hardware removal History of meniscectomy of right knee (Acute) repair of meniscus History of rotator cuff surgery right History of tonsillectomy Status post insertion of spinal cord stimulator 10 years ago; s/p battery revision/replacement 11/2018 (MAC sedation at [facility])/2018 Family History Son Family history of muscular dystrophy Other Past medical history not known due to adoption Social History Preferred Language: Yi Communication Ability: Effective Visual Impairment: Limited Hearing Ability: Normal 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 and A total of 10 systems reviewed and were otherwise negative Physical Exam Vital Signs Vital Signs - 24 hr 07/29/19 22:55 07/30/19 07:35 Temperature 36.6 C 36.6 C Temperature Source Oral Oral Pulse Rate [Left Finger] 81 67 Pulse Rhythm [Left Finger] Regular Pulse Strength [Left Finger] Normal Respiratory Rate 16 16 Respiratory Depth Normal Blood Pressure [Right Arm] 142/86 H 149/86 H Blood Pressure Mean [Right Arm] 104 107 Blood Pressure Position [Right Arm] Lying Lying Pulse Oximetry 92 97 Oxygen Delivery Method Room Air Room Air GENERAL: Well appearing, well nourished, NAD, non-toxic. EYE EXAM: Normal conjunctiva. PERRL, no anisocoria and EOM's grossly intact w/o pain. OROPHARYNX: Moist mucous membranes. Normal dentition. NECK: Supple, no nuchal rigidity, no adenopathy, non-tender. no signs of meni ngismus. LUNGS: Clear to auscultation. Normal chest wall mechanics. HEART: NSR, no MRG. ABDOMEN: Abdomen soft, non-tender, normo-active bowel sounds, no masses, no rebound or guarding. BACK: No CVA TTP. Well healing incision over the midline lumbar area. No drainage, redness, or fluctuance. No saddle anesthesia. Good strength bilaterally. No weakness. No sensory deficits. SKIN: No rashes and no bruising. UPPER EXTREMITIES: Upper extremities are grossly normal. LOWER EXTREMITIES: No pitting edema. No calf pain. NEURO EXAM: Cranial nerves II-XII grossly intact, normal speech. Moves all 4 extremities on command w/o issue. Course Course 1343: The patient was evaluated in room C12B, and a complete history and physical examination were performed. 1347: Continuous Cardiac Monitoring: An order was placed for continuous cardiac monitoring. The monitor shows a rate of 74 with a normal sinus rhythm. 1539: I reevaluated the patient. She states she still has pain. 1745: I discussed the patient's case with Dr. Kelley. He will evaluate the patient for further management. Administered Medications Acetaminophen (Tylenol) 1,000 mg PO Q8H PRN PRN Reason: MILD Pain Rating 1,2,3 Stop: 08/27/19 18:09 Last Admin: 07/28/19 21:08 Dose: 1,000 mg Documented by: [id number] Atorvastatin Calcium (Lipitor) 20 mg PO QAM [facility] Stop: 08/28/19 08:59 Last Admin: 07/30/19 08:37 Dose: 20 mg Documented by: [id number] Admin: 07/29/19 09:15 Dose: 20 mg Documented by: [id number] Citalopram Hydrobromide (Celexa) 20 mg PO QAM [facility] Stop: 08/28/19 08:59 Last Admin: 07/30/19 08:37 Dose: 20 mg Documented by: [id number] Admin: 07/29/19 09:15 Dose: 20 mg Documented by: [id number] Cyclobenzaprine HCl (Flexeril) 10 mg PO TID [facility] Stop: 08/28/19 13:59 Last Admin: 07/30/19 13:25 Dose: 10 mg Documented by: [id number] Admin: 07/30/19 08:37 Dose: 10 mg Documented by: [id number] Admin: 07/29/19 21:34 Dose: 10 mg Documented by: [id number] Admin: 07/29/19 13:45 Dose: 10 mg Documented by: [id number] Docusate Sodium (Colace) 100 mg PO BID [facility] Stop: 08/27/19 20:59 Last Admin: 07/30/19 08:37 Dose: 100 mg Documented by: [id number] Admin: 07/29/19 21:34 Dose: 100 mg Documented by: [id number] Admin: 07/29/19 09:19 Dose: 100 mg Documented by: [id number] Admin: 07/28/19 21:08 Dose: Not Given Documented by: [id number] Fentanyl (Duragesic) 50 mcg TD Q3D [facility] Stop: 08/11/19 21:49 Last Admin: 07/28/19 21:45 Dose: 50 mcg Documented by: [id number] Fish Oil ([place]-3 (Purified Fish Oil)) 1 gm PO DAILY [facility] Stop: 08/28/19 08:59 Last Admin: 07/30/19 08:36 Dose: 1 gm Documented by: [id number] Admin: 07/29/19 09:15 Dose: Not Given Documented by: [id number] Gabapentin (Neurontin) 800 mg PO TID [facility] Stop: 08/27/19 20:59 Last Admin: 07/30/19 13:25 Dose: 800 mg Documented by: [id number] Admin: 07/30/19 08:36 Dose: 800 mg Documented by: [id number] Admin: 07/29/19 21:34 Dose: 800 mg Documented by: [id number] Admin: 07/29/19 13:13 Dose: 800 mg Documented by: [id number] Admin: 07/29/19 09:15 Dose: 800 mg Documented by: [id number] Admin: 07/28/19 21:08 Dose: 800 mg Documented by: [id number] Lidocaine (Lidoderm 5%) 1 patch TD QAM [facility] Stop: 08/28/19 08:59 Last Admin: 07/30/19 12:12 Dose: 1 patch Documented by: [id number] Admin: 07/30/19 08:37 Dose: 1 patch Documented by: [id number] Admin: 07/29/19 09:19 Dose: 1 patch Documented by: [id number] Miscellaneous (Fentanyl Patch Check Placement) 1 ea N/A QS [facility] Stop: 08/28/19 00:00 Last Admin: 07/30/19 17:19 Dose: 1 ea Documented by: [id number] Admin: 07/30/19 08:17 Dose: 1 ea Documented by: [id number] Admin: 07/30/19 00:00 Dose: 1 ea Documented by: [id number] Admin: 07/29/19 16:36 Dose: 1 ea Documented by: [id number] Admin: 07/29/19 08:04 Dose: 1 ea Documented by: [id number] Admin: 07/29/19 00:11 Dose: 1 ea Documented by: [id number] Miscellaneous (Remove Lidoderm Patch) 1 ea N/A DAILY@2100 [facility] Stop: 08/28/19 20:59 Last Admin: 07/29/19 21:34 Dose: 1 ea Documented by: [id number] Multivitamins (Multivitamin Tab) 1 tab PO DAILY [facility] Stop: 08/28/19 08:59 Last Admin: 07/30/19 08:36 Dose: 1 tab Documented by: [id number] Admin: 07/29/19 09:14 Dose: Not Given Documented by: [id number] Multivitamins/Minerals (Caltrate Plus) 1 tab PO BID [facility] Stop: 08/27/19 20:59 Last Admin: 07/30/19 08:36 Dose: 1 tab Documented by: [id number] Admin: 07/29/19 21:34 Dose: 1 tab Documented by: [id number] Admin: 07/29/19 09:14 Dose: 1 tab Documented by: [id number] Admin: 07/28/19 21:08 Dose: 1 tab Documented by: [id number] Oxycodone HCl (Roxicodone Immediate Rel) 5 - 10 mg PO Q4H PRN PRN Reason: Moderate-Severe Pain Stop: 08/11/19 18:09 Last Admin: 07/30/19 13:24 Dose: 10 mg Documented by: [id number] Admin: 07/30/19 07:50 Dose: 10 mg Documented by: [id number] Admin: 07/30/19 03:52 Dose: 10 mg Documented by: [id number] Admin: 07/29/19 23:42 Dose: 10 mg Documented by: [id number] Admin: 07/29/19 19:51 Dose: 10 mg Documented by: [id number] Admin: 07/28/19 19:55 Dose: 10 mg Documented by: [id number] Pantoprazole Sodium (Protonix) 40 mg PO QAM [facility] Stop: 08/28/19 08:59 Last Admin: 07/30/19 07:53 Dose: 40 mg Documented by: [id number] Admin: 07/29/19 09:16 Dose: 40 mg Documented by: [id number] Discontinued Medications Acetaminophen (Tylenol) 1,000 mg PO NOW STA Stop: 07/28/19 13:53 Last Admin: 07/28/19 14:23 Dose: 1,000 mg Documented by: [id number] Cyclobenzaprine HCl (Flexeril) 10 mg PO HS PRN PRN Reason: MUSCLE SPASMS Stop: 08/27/19 19:25 Last Admin: 07/28/19 21:08 Dose: 10 mg Documented by: [id number] Fentanyl (Duragesic) 25 mcg TD Q72H [facility] Stop: 08/11/19 19:59 Last Admin: 07/28/19 21:46 Dose: Not Given Documented by: [id number] Hydromorphone HCl (Dilaudid) 1 mg IV NOW STA Stop: 07/28/19 13:53 Last Admin: 07/28/19 14:24 Dose: 1 mg Documented by: [id number] Hydromorphone HCl (Dilaudid) 1 mg IV NOW STA Stop: 07/28/19 16:16 Last Admin: 07/28/19 16:55 Dose: 1 mg Documented by: [id number] Sodium Chloride (Nss) 500 mls @ 999 mls/hr IV .Q31M [facility] Stop: 07/28/19 14:30 Last Infusion: 07/28/19 14:55 Dose: 0 mls/hr Documented by: [id number] Admin: 07/28/19 14:24 Dose: 999 mls/hr Documented by: [id number] Methocarbamol 1,000 mg/ (Dextrose) 260 mls @ 999 mls/hr IV ONE ONE Stop: 07/28/19 16:45 Last Admin: 07/28/19 16:38 Dose: Not Given Documented by: [id number] Lactated Ringer's (Lr) 1,000 mls @ 15 mls/hr IV .Q24H [facility] Stop: 08/27/19 18:09 Last Infusion: 07/30/19 10:20 Dose: 0 mls/hr Documented by: [id number] Infusion: 07/29/19 21:29 Dose: 15 mls/hr Documented by: [id number] Admin: 07/29/19 21:28 Dose: Not Given Documented by: [id number] Infusion: 07/29/19 15:00 Dose: 15 mls/hr Documented by: [id number] Admin: 07/28/19 21:54 Dose: 15 mls/hr Documented by: [id number] Ketorolac Tromethamine (Toradol) 30 mg IV NOW STA Stop: 07/28/19 15:18 Last Admin: 07/28/19 15:48 Dose: 30 mg Documented by: [id number] Ketorolac Tromethamine (Toradol) 15 mg IV Q6H PRN PRN Reason: Pain Stop: 08/02/19 18:12 Last Admin: 07/30/19 06:30 Dose: 15 mg Documented by: [id number] Admin: 07/29/19 18:58 Dose: 15 mg Documented by: [id number] Admin: 07/29/19 08:04 Dose: 15 mg Documented by: [id number] Methocarbamol (Robaxin) 750 mg PO NOW STA Stop: 07/28/19 16:29 Last Admin: 07/28/19 16:39 Dose: 750 mg Documented by: [id number] Methylprednisolone (Solumedrol) 60 mg IV NOW STA Stop: 07/28/19 13:53 Last Admin: 07/28/19 14:23 Dose: 60 mg Documented by: [id number] Miscellaneous (Fentanyl Patch Remove & Waste) 1 ea N/A NOW STA Stop: 07/28/19 19:51 Last Admin: 07/28/19 21:44 Dose: 1 ea Documented by: [id number] Cosigned by: [id number] Miscellaneous (Fentanyl Patch Remove & Waste) 1 ea N/A NOW ONE Stop: 07/28/19 21:46 Last Admin: 07/28/19 21:45 Dose: Not Given Documented by: [id number] Medical Decision Making Differential Diagnosis Differential diagnoses includes but is not limited to lumbar radiculopathy, muscle strain, fracture, cauda equina, mass, and disc herniation. Medical Records Attestation: I reviewed the patient's medical records. Patient was seen by Dr. Kelley - Orthopedic surgery on 07/15/19. He did a L2 - L3 fusion and cage insertion for lumbar spinal stenosis. Home Medications Current Medication List: was personally reviewed by me Laboratory Data Attestation: I reviewed the patient's lab results. Result diagrams: 07/28/19 14:05 07/28/19 14:05 Lab Results 07/28/19 07/28/19 Range/Units 14:05 14:05 WBC 7.38 (4.8-10.8) K/uL RBC 3.89 L (4.2-5.4) M/uL Hgb 10.9 L (12.0-16.0) g/dL Hct 34.6 L (37-47) % MCV 88.9 (80-100) fL MCH 28.0 (25-34) pg MCHC 31.5 L (32-36) g/dL RDW Std Deviation 46.0 (36.4-46.3) fL RDW Coeff of Licha 14.1 (11.5-14.5) % Plt Count 358 (130-400) K/uL MPV 9.6 (7.4-10.4) fL Immature Gran % (Auto) 0.3 % Neut % (Auto) 58.3 % Lymph % (Auto) 32.2 % [place] % (Auto) 7.3 % Eos % (Auto) 1.5 % Baso % (Auto) 0.4 % Immature Gran # (Auto) 0.02 (0.00-0.02) K/uL Neut # (Auto) 4.30 (1.4-6.5) K/uL Lymph # (Auto) 2.38 (1.2-3.4) K/uL [place] # (Auto) 0.54 (0.11-0.59) K/uL Eos # (Auto) 0.11 (0-0.5) K/uL Baso # (Auto) 0.03 (0-0.2) K/uL Sodium 138 (136-145) mmol/L Potassium 4.3 (3.5-5.1) mmol/L Chloride 106 (98-107) mmol/L Carbon Dioxide 29 (21-32) mmol/L Anion Gap 3.0 (3-11) BUN 13 (7-18) mg/dl Creatinine 0.54 L (0.6-1.2) mg/dl Est Cr Clr Drug Dosing Not Reportable Est GFR ( Amer) 108.5 Est GFR (Non-Af Amer) 93.6 BUN/Creatinine Ratio 24.9 H (10-20) Glucose 91 (70-99) mg/dl Calcium 8.8 (8.5-10.1) mg/dl Imaging Data Radiologist's Impression: Radiology results as stated below per my review and the radiologist's interpretation: XR lumbar spine 2-3V CLINICAL HISTORY: recent fusion, persistent pain, no deficits COMPARISON STUDY: Lumbar myelogram May 25, 2019. FINDINGS: Interval L2-L3 discectomy with interbody spacer placement and a posterior decompression with bilateral pedicle screw fusion is noted. Previous L3-S1 discectomy with interbody spacer placement as noted. No acute lumbar spine fracture is noted. Hardware is intact. Spinal stimulator is noted. There is mild leftward curvature of the lumbar spine which is unchanged. IMPRESSION: 1. No acute lumbar spine fracture or subluxation. 2. Status post interval L2-L3 discectomy, posterior decompression bilateral pedicle screw fusion. Hardware intact. ACT 112: Negative or not required by law. Electronically signed by: Anam Irizarry M.D. 07/28/2019 3:16 PM Blood Pressure Blood Pressure Findings: Elevated blood pressure Blood Pressure Disposition: further management by hospitalist DUSTIN Narrative The patient is a 74 year-old white female w/ PMHx neurogenic claudication due to lumbar stenosis, status post insertion of spinal cord stimulator, status post hardware removal, hx of tonsillectomy, hx of rotator cuff surgery, hx of colonoscopy, hx of dilation and curettage, depression, lumbar radiculopathy, acid reflux, lumbar postlaminectomy syndrome, neuropathy, chronic low back pain, anxiety, degenerative disc disease, who presents to the ED w/ CC of constant low back pain. Patient was seen in eval at the bedside. The patient is approximately 2 weeks postoperative from lumbar fusion and cage placement. The patient has complained of intractable back pain. The patient has tried pain medications at home but to no effect. The patient has been seen Dr. Dr. Kelley in the past. The patient does have some pain that is bandlike. No evidence of sciatica or weakness. The patient's incisional site appears well. No neurovascular deficits in the lower extremities. The patient did have blood work completed which is unremarkable. Lumbar films are unremarkable and hardware is intact. The patient was given multiple rounds of pain medication and was unable to feel improved. Given the patient's intractable back pain I did speak with the on-call spinal specialist who agreed to evaluate the patient. Patient was admitted to their service. Observation note: Indication: Intractable back pain Patient, with no significant Family History, was first seen at 1343 hrs and the observation time began at 1343 hrs and was necessary in order to determine if the patient could improve w/ her back pain and avoid unnecessary admission . Upon re-evaluation, >3 horus hours of observation revealed that the patient could not be discharged home as she had persistent intractable back pain after multiple medications given. Disposition date and time 07/28/19 @ 1745. Impression & Plan Back pain, Post-op pain, Anemia Discharge Plan Visit Data *Final* Discharge Date/Time: 07/28/19 19:08 Chief Complaint: Back Injury/Pain Stated Complaint: BACK PAIN ED Provider: Flo Toth Discharge Problem: Back pain, Post-op pain, Anemia Patient Disposition: Admitted As Inpatient Discharge Instructions Interventions: ED Discharge Assessment Last Done: 07/28/19 19:08 Discharge Problem: Back pain Qualifiers: Back pain location: back pain in unspecified location Chronicity: chronic Back pain laterality: unspecified Qualified Code(s): M54.9 - Dorsalgia, unspecified Anemia Qualifiers: Anemia type: unspecified type Qualified Code(s): D64.9 - Anemia, unspecified The scribe's documentation has been prepared under my direction and personally reviewed by me in its entirety. I confirm that the note above accurately reflects all work, treatment, procedures, and medical decision making performed by me.
[2019-07-28] MEDS ORDERED: CYCLOBENZAPRINE HCL 10 MG TAB PO PRN (19:26)
[2019-07-28] MEDS: OXYCODONE HCL IR 5 MG TAB (IMMEDIATE RELEASE) PO PRN (19:55)
[2019-07-28] MEDS ORDERED: fentaNYL 25 MCG/HR TDSY TD SCH (20:00)
[2019-07-28] MEDS ORDERED: ACETAMINOPHEN PO SCH (21:00)
[2019-07-28] MEDS: CALCIUM 600MG + VIT D 400 IU TAB PO SCH (21:08)
[2019-07-28] MEDS: GABAPENTIN 800 MG TAB PO SCH (21:08)
[2019-07-28] MEDS: DOCUSATE SODIUM 100 MG CAP PO SCH (21:08)
[2019-07-28] MEDS ORDERED: fentaNYL 50 MCG/HR TDSY TD SCH ×2 (21:50→22:50)
[2019-07-28] MEDS: LACTATED RINGER'S 1,000 ML IV SCH (21:54)
[2019-07-29] MEDS ORDERED: CHECK FENTANYL PATCH PLACEMENT SCH
[2019-07-29] MEDS: CHECK FENTANYL PATCH PLACEMENT SCH ×3 (00:11→16:36)
[2019-07-29] MEDS: KETOROLAC TROMETHAMINE 15 MG/ML VIAL IV PRN ×2 (08:04→18:58)
[2019-07-29] MEDS ORDERED: CYCLOBENZAPRINE HCL 10 MG TAB PO PRN (08:38)
--- NOTE | 2019-07-29 08:41 | Pain Management Consultation ---
Date of Consultation July 29, 2019 Assessment & Plan (1) Sacroiliitis: 1. Continue fentanyl patch 50 mcg, gabapentin 800 mg 3 times daily, oxycodone 5 to 10 mg every 4 hours as needed, and Toradol 15 mg every 6 hours. 2. Lidocaine patch has been added. 3. Cyclobenzaprine has been increased to 3 times daily. 4. Continue hydromorphone 1 mg every 2 hours as needed for breakthrough pain. 5. Would not recommend any interventional procedures at this time as she is only 2 weeks postop. Consider left SI joint injection if still experiencing pain 6 weeks postop. Patient does follow with Dr. Hagen. Thank you for the consultation. Please call with any questions or concerns. History of Present Illness Attending Physician: Ovidio Kelley, DO History of Present Illness This is a 74-year-old female that has been admitted to the [facility] for intractable low back pain. Patient has been chronically been on Fentanyl Patch 25mcg and Percocet 5/325mg sparingly (typically using #60 tablets every 2-3 months) for chronic low back pain as she does have a previous history of lumbar surgery. On 07/15/19 she did receive L2-[address] Kelley which did alleviate the right leg radicular symptoms that she was experiencing prior to surgery. She was discharged to home after the surgery. The Fentanyl patch was increased to 50mcg and she had Percocet 5/325mg to take for breakthrough pain which was not adequately controlling her pain at home. She states that her pain is now located in the left low back. Pain is aggravated with standing, twisting, and walking. No radicular symptoms, leg weakness, saddle anesthesia, bowel/bladder incontinence. Case discussed with Dr. Ciara Mehta Pain Assessment Full Body Front + Back: 1. Allergies Allergy/AdvReac Type Severity Reaction Status Date / Time contact metal agent Allergy Mild Rash Verified 07/28/19 14:47 morphine AdvReac Unknown "does not Verified 07/28/19 14:47 work for pain control" Home Medications Home Medications Medication Instructions Recorded Confirmed Type atorvastatin 20 mg tablet 20 mg PO QAM 11/10/18 07/28/19 History calcium carbonate-vitamin D3 250 1 tab PO BID tab 11/10/18 07/28/19 History mg-125 unit tablet citalopram 20 mg tablet 20 mg PO QAM 11/10/18 07/28/19 History cyclobenzaprine 10 mg tablet 10 mg PO HS PRN 11/10/18 07/28/19 History fentanyl 25 mcg/hr transdermal 1 patch TD Q72H 11/10/18 07/28/19 History patch gabapentin 800 mg tablet 800 mg PO TID 11/10/18 07/28/19 History multivitamin 1 cap PO DAILY 11/10/18 07/28/19 History omega 6-cyi-vci-fish oil 120 1 cap PO DAILY cap 11/10/18 07/28/19 History mg-180 mg-500 mg capsule omeprazole magnesium 20 mg 20 mg PO QAM 11/10/18 07/28/19 History tablet,delayed release acetaminophen [Tylenol 8 Hour] 2 tab PO BID 11/17/18 07/28/19 History diclofenac sodium 1 applic TOPICAL UD PRN 06/08/19 07/28/19 History oxycodone 5 mg PO Q6H PRN #30 tab 07/18/19 07/28/19 Rx Patient History Medical History Anxiety Battery end of life of spinal cord stimulator placed 10 years ago, s/p battery revision/replacement 11/2018- patient advised to bring remote AM DOS/OR made aware Borderline high cholesterol Degenerative disc disease Lumbar radiculopathy, chronic + postlaminectomy syndrome/controlled with SCS Neuropathy + balance issues Surgical History H/O dilation and curettage 2012 - LMA #3 History of colonoscopy History of lumbar spinal fusion subsequent hardware removal History of meniscectomy of right knee (Acute) repair of meniscus History of rotator cuff surgery right History of tonsillectomy Status post insertion of spinal cord stimulator 10 years ago; s/p battery revision/replacement 11/2018 (MAC sedation at [facility])/2018 Family History Son Family history of muscular dystrophy Other Past medical history not known due to adoption Social History Preferred Language: Lithuanian Communication Ability: Effective Visual Impairment: Limited Hearing Ability: Normal Head Of Science Required: No Beliefs That Will Affect Care: None marital status: Current Living Situation: Spouse current occupational status: employed and 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 Does appear comfortable laying in hospital bed. Speech and cognition is intact. Mood and affect is appropriate. Able to make positional changes easily in the hospital bed. Head/face: Normocephalic and atraumatic. Eyes: No drainage or conjunctival injection. ENT: Nose without bleeding or discharge. Oral mucosa moist. Neck: Full ROM without apparent pain. No swelling or masses noted. Respiratory: Patient with unlabored breathing. No signs of respiratory distress. Chest/Axilla: Chest movement symmetrical. No deformities noted. Back: Lumbar incision does appear to be healing well. Full ROM in all planes. There is no midline or facet joint tenderness. There is exquisite tenderness along the left SI joint with mil overlying muscle spasm. No trigger points noted. Skin: [place], warm and dry. No rash noted. MS/Extremity: No swelling, no deformities. Moving extremities appropriately. Neuro: Alert and appears oriented. Speech is fluent. Cranial Nerves are grossly intact. Psych: Alert, pleasant, affect is calm
[2019-07-29] MEDS: MULTIVITAMIN TAB PO SCH (09:14)
[2019-07-29] MEDS: CALCIUM 600MG + VIT D 400 IU TAB PO SCH ×2 (09:14→21:34)
[2019-07-29] MEDS: GABAPENTIN 800 MG TAB PO SCH ×3 (09:15→21:34)
[2019-07-29] MEDS: CITALOPRAM 20 MG TAB PO SCH (09:15)
[2019-07-29] MEDS: ATORVASTATIN 20 MG TAB PO SCH (09:15)
[2019-07-29] MEDS: OMEGA-3 (PURIFIED FISH OIL) 1 GM CAP PO SCH (09:15)
[2019-07-29] MEDS: PANTOprazole 40 MG TAB PO SCH (09:16)
[2019-07-29] MEDS: DOCUSATE SODIUM 100 MG CAP PO SCH ×2 (09:19→21:34)
[2019-07-29] MEDS: LIDOCAINE 5% 1 PATCH TD SCH (09:19)
[2019-07-29] MEDS: CYCLOBENZAPRINE HCL 10 MG TAB PO SCH ×2 (13:45→21:34)
--- NOTE | 2019-07-29 14:33 | History & Physical Report ---
Date of Service July 29, 2019 Assessment & Plan (1) Sacroiliitis: This time we will hopefully control her symptoms with pain management. If she is daily improved by tomorrow can possibly discharge home Friday. Present on Admission?: Yes History of Present Illness Chief Complaint: Significant back pain Primary Care Provider: Chepe Blanc DO This is a 74-year-old female well-known to me status post lumbar decompression fusion L2-3. While her leg symptoms have improved dramatically she still struggling with significant back pain as well as what appears to be sacroiliitis. She is benign but unable to control her pain at home is here in the hospital for additional pain control. She denies any loss of bowel bladder control denies any leg pain. Has been ambulating regularly per my request upon discharge from surgery. Allergies Allergy/AdvReac Type Severity Reaction Status Date / Time contact metal agent Allergy Mild Rash Verified 07/28/19 14:47 morphine AdvReac Unknown "does not Verified 07/28/19 14:47 work for pain control" Home Medications Home Medications Medication Instructions Recorded Confirmed Type atorvastatin 20 mg tablet 20 mg PO QAM 11/10/18 07/28/19 History calcium carbonate-vitamin D3 250 1 tab PO BID tab 11/10/18 07/28/19 History mg-125 unit tablet citalopram 20 mg tablet 20 mg PO QAM 11/10/18 07/28/19 History cyclobenzaprine 10 mg tablet 10 mg PO HS PRN 11/10/18 07/28/19 History fentanyl 25 mcg/hr transdermal 1 patch TD Q72H 11/10/18 07/28/19 History patch gabapentin 800 mg tablet 800 mg PO TID 11/10/18 07/28/19 History multivitamin 1 cap PO DAILY 11/10/18 07/28/19 History omega 0-jrq-kfm-fish oil 120 1 cap PO DAILY cap 11/10/18 07/28/19 History mg-180 mg-500 mg capsule omeprazole magnesium 20 mg 20 mg PO QAM 11/10/18 07/28/19 History tablet,delayed release acetaminophen [Tylenol 8 Hour] 2 tab PO BID 11/17/18 07/28/19 History diclofenac sodium 1 applic TOPICAL UD PRN 06/08/19 07/28/19 History oxycodone 5 mg PO Q6H PRN #30 tab 07/18/19 07/28/19 Rx Past Med/Surg History Medical History Anxiety Battery end of life of spinal cord stimulator placed 10 years ago, s/p battery revision/replacement 11/2018- patient advised to bring remote AM DOS/OR made aware Borderline high cholesterol Degenerative disc disease Lumbar radiculopathy, chronic + postlaminectomy syndrome/controlled with SCS Neuropathy + balance issues Surgical History H/O dilation and curettage 2013 - LMA #3 History of colonoscopy History of lumbar spinal fusion subsequent hardware removal History of meniscectomy of right knee (Acute) repair of meniscus History of rotator cuff surgery right History of tonsillectomy Status post insertion of spinal cord stimulator 10 years ago; s/p battery revision/replacement 11/2018 (MAC sedation at [facility])/2018 Family History Son Family history of muscular dystrophy Other Past medical history not known due to adoption Social History Preferred Language: Yi Communication Ability: Effective Visual Impairment: Limited Hearing Ability: Normal 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 She has some tenderness palpation of the SI joints left greater than right. Incision is healing appropriately. There is no pain to palpation or percussion of the jewel- incisional area of her lumbar spine. Results & Data Vital Signs (Past 12 Hours) Vital Signs Temp Pulse Resp BP Pulse Ox 07/29/19 07:04 36.5 C 76 18 134/78 95
[2019-07-29] MEDS: OXYCODONE HCL IR 5 MG TAB (IMMEDIATE RELEASE) PO PRN ×2 (19:51→23:42)
[2019-07-29] MEDS: LACTATED RINGER'S 1,000 ML IV SCH (21:28)
[2019-07-30] MEDS: OXYCODONE HCL IR 5 MG TAB (IMMEDIATE RELEASE) PO PRN ×4 (03:52→19:42)
[2019-07-30] MEDS: KETOROLAC TROMETHAMINE 15 MG/ML VIAL IV PRN (06:30)
[2019-07-30] MEDS: PANTOprazole 40 MG TAB PO SCH (07:53)
[2019-07-30] MEDS: CHECK FENTANYL PATCH PLACEMENT SCH ×3 (08:17→17:19)
[2019-07-30] MEDS: GABAPENTIN 800 MG TAB PO SCH ×3 (08:36→20:18)
[2019-07-30] MEDS: OMEGA-3 (PURIFIED FISH OIL) 1 GM CAP PO SCH (08:36)
[2019-07-30] MEDS: CALCIUM 600MG + VIT D 400 IU TAB PO SCH ×2 (08:36→20:18)
[2019-07-30] MEDS: MULTIVITAMIN TAB PO SCH (08:36)
[2019-07-30] MEDS: ATORVASTATIN 20 MG TAB PO SCH (08:37)
[2019-07-30] MEDS: LIDOCAINE 5% 1 PATCH TD SCH ×2 (08:37→12:12)
[2019-07-30] MEDS: CYCLOBENZAPRINE HCL 10 MG TAB PO SCH ×3 (08:37→20:18)
[2019-07-30] MEDS: CITALOPRAM 20 MG TAB PO SCH (08:37)
[2019-07-30] MEDS: DOCUSATE SODIUM 100 MG CAP PO SCH ×2 (08:37→20:19)
--- NOTE | 2019-07-30 13:26 | Orthopedic Progress Note ---
Date of Service July 30, 2019 Assessment & Plan (1) Sacroiliitis: This time she states she is in too much pain to go home. We will watch her again 1 more day continue with therapy as tolerated await interventional pain management's input hopefully discharge home this weekend. Present on Admission?: Yes Subjective Patient still complaining of lumbosacral back pain now rating across the bilateral SI joints. She denies any radicular leg pain she is been up and ambulating she states without difficulty. Describes [id number] and tingling the lumbosacral junction. She states she requires pain medication urgently when the pain becomes a "10 out of 10" Physical Exam Physical Exam: On exam she moves about the bed and relatively pain-free fashion. I am unable to elicit any discomfort to palpation of the lumbar sacral junction. She has excellent strength testing lower extremities. Results & Data Vital Signs (Past 12 Hours) Vital Signs Temp Pulse Resp BP Pulse Ox 07/30/19 07:35 36.6 C 67 16 149/86 H 97
[2019-07-31] MEDS: OXYCODONE HCL IR 5 MG TAB (IMMEDIATE RELEASE) PO PRN ×3 (00:09→11:59)
[2019-07-31] MEDS: CHECK FENTANYL PATCH PLACEMENT SCH ×2 (00:11→08:06)
[2019-07-31] MEDS: CITALOPRAM 20 MG TAB PO SCH (08:07)
[2019-07-31] MEDS: PANTOprazole 40 MG TAB PO SCH (08:07)
[2019-07-31] MEDS: OMEGA-3 (PURIFIED FISH OIL) 1 GM CAP PO SCH (08:07)
[2019-07-31] MEDS: LIDOCAINE 5% 1 PATCH TD SCH (08:07)
[2019-07-31] MEDS: ATORVASTATIN 20 MG TAB PO SCH (08:07)
[2019-07-31] MEDS: MULTIVITAMIN TAB PO SCH (08:08)
[2019-07-31] MEDS: CYCLOBENZAPRINE HCL 10 MG TAB PO SCH (08:08)
[2019-07-31] MEDS: GABAPENTIN 800 MG TAB PO SCH (08:08)
[2019-07-31] MEDS: CALCIUM 600MG + VIT D 400 IU TAB PO SCH (08:08)
[2019-07-31] MEDS: DOCUSATE SODIUM 100 MG CAP PO SCH (08:09)
--- NOTE | 2019-07-31 11:02 | Discharge Summary ---
Date of Service July 31, 2019 Admission HPI Per Admitting Provider This is a 74-year-old female well-known to me status post lumbar decompression fusion L2-3. While her leg symptoms have improved dramatically she still struggling with significant back pain as well as what appears to be sacroiliitis. She is benign but unable to control her pain at home is here in the hospital for additional pain control. She denies any loss of bowel bladder control denies any leg pain. Has been ambulating regularly per my request upon discharge from surgery. Principal Diagnosis Sacroiliitis Discharge Data Allergies Allergy/AdvReac Type Severity Reaction Status Date / Time contact metal agent Allergy Mild Rash Verified 07/28/19 14:47 morphine AdvReac Unknown "does not Verified 07/28/19 14:47 work for pain control" Consultations 07/28/19 17:52 ED Decision to Admit Stat 07/28/19 18:10 Consult Pain Management Routine Hospital Course (1) Back pain: Patient was admitted from the ER secondary to significant back pain. Her symptoms did improve with changes of her medication as well as a consultation with pain management. She does not manifest evidence of sacroiliitis throughout her stay. She improved steadily and was socially discharged home. Discharge orders instructions from the chart for further review. Total Time Total Time Spent Total Time Spent (In Minutes): 20 minutes Discharge Plan Discharge Items Patient Disposition: Home - Self-Care Reason For Visit: INTRACTABLE BACK PAIN Discharge Diagnosis: Sacroiliitis Activity: Per Instructions section Lifting: No more than 10 pounds Non-emergency contact: Primary Care Provider Call non-emergency contact if: you have any medication questions Follow-up/Referrals: Chepe Blanc DO [Primary Care Provider] - Diet: Regular Addtl Attending Provider Instructions: Follow-up in our office in the next 1 to 2 weeks for evaluation. Pending Studies at Discharge: No Stand-Alone Forms: My [employer], Smoking Cessation Medications and DC Order Prescriptions: Continued fentanyl 25 mcg/hr patch 72 hour 1 patch TD Q72H RF: 0 gabapentin 800 mg tablet 800 mg PO TID RF: 0 Prilosec OTC 20 mg tablet,delayed release (DR/EC) 20 mg PO QAM RF: 0 citalopram [Celexa] 20 mg tablet 20 mg PO QAM RF: 0 atorvastatin [Lipitor] 20 mg tablet 20 mg PO QAM RF: 0 cyclobenzaprine 10 mg tablet 10 mg PO HS PRN (Reason: MUSCLE SPASMS) RF: 0 multivitamin capsule 1 cap PO DAILY RF: 0 Fish Oil 120-180-500 mg capsule 1 cap PO DAILY RF: 0 calcium carbonate-vitamin D3 250-125 mg-unit tablet 1 tab PO BID RF: 0 diclofenac sodium 3 % Gel 1 applic TOPICAL UD PRN (Reason: Back Pain) RF: 0 oxycodone 5 mg tablet 5 mg PO Q6H PRN (Reason: pain, severe) Qty: 30 RF: 0 acetaminophen [Tylenol 8 Hour] 650 mg Tablet Extended Release 2 tab PO BID RF: 0 Discharge Orders: Discharge Order (Routine); Ordered 07/31/19 Ordered By: Ovidio Kelley Admission Data Admit Date/Time: 07/30/19 13:22 Attending Provider: Ovidio Kelley Admit Provider: Ovidio Kelley Primary Care Provider: Chepe Blanc Other Providers: Ovidio Kelley ; Humberto Wilkes ; Ciara Mehta ; Honorio Knowles ; Alma Avila
== END 2019-07-31 12:32 | disposition home or self-care (01) ==
LOC: 3N 13:29 → ED 13:29 → 3N 19:08

== ENCOUNTER 2020-12-19 08:51 | Observation (INO) ==
--- NOTE | 2020-11-24 12:18 | History & Physical Report ---
Date of Service November 24, 2020 date of surgery: 12/19/20 Procedure: Right Total Knee Arthroplasty Assessment & Plan (1) Arthritis of right knee: presents with increased continued pain in her right knee, has had prior right knee scope about 3 years ago without relief, also had recent cortisone injection and visco injections without relief. we discussed options and she would like to proceed with a right knee block TKA @ [facility]. we will schedule for Iovera treatment prior to her surgery. her xrays show narrowing tricompartmental, osteophyte formation and subchondral sclerosis. The risks and benefits have been discussed including, but not limited to, risk of infection, nerve injury, stiffness, loss of motion, failure to improve, etc. Reasonable outcomes and options of treatment were discussed. An explanation of appropriate alternatives to the procedure that may be advantageous were discussed and their risks and benefits, as well as the risks and benefits of not proceeding with treatment. I offered to answer any additional inquiries concerning the treatment involved. All the patient's questions were answered. The patient is agreeable, understanding of the treatment plan and alternatives, and wishes to proceed with the treatment plan. History of Present Illness Chief Complaint: Right knee pain Primary Care Provider: Chepe Blanc DO Ms Kulkarni is a 72 year old female who complains of right knee pain, presents for pre-op evaluation prior to a right total knee replacement by Dr Maddox at [facility]. she complains of pain and stiffness in the right knee. Currently the patient states that the symptoms are moderate-severe and rated as 6/10. The pain is described as aching, sharp and throbbing. The symptoms are aggravated by ascending stairs, daily activities, first steps while awake walking. Prior NSAIDs include Ibuprofen, Aleve and Diclofenac. she has been treated with previous cortisone injections in the past without much relief. she also underwent Right knee arthroscopy with partial medial meniscectomy partial lateral meniscectomy chondroplasty medial femoral condyle patellofemoral joint on 05/19/2019 Allergies Allergy/AdvReac Type Severity Reaction Status Date / Time contact metal agent Allergy Mild Rash Verified 11/23/20 12:28 morphine AdvReac Unknown "does not Verified 11/23/20 12:28 work for pain control" Home Medications Medication Instructions Recorded Confirmed Type atorvastatin 20 mg tablet 20 mg PO QAM 11/10/18 11/23/20 History calcium carbonate-vitamin D3 250 1 tab PO BID tab 11/10/18 11/23/20 History mg-125 unit tablet citalopram 20 mg tablet 20 mg PO QAM 11/10/18 11/23/20 History fentanyl 25 mcg/hr transdermal 1 patch TD Q72H 11/10/18 11/23/20 History patch gabapentin 800 mg tablet 800 mg PO TID 11/10/18 11/23/20 History omega 3-fov-bzg-fish oil 120 1 cap PO QAM cap 11/10/18 11/23/20 History mg-180 mg-500 mg capsule omeprazole magnesium 20 mg 20 mg PO QPM 11/10/18 11/23/20 History tablet,delayed release acetaminophen [Tylenol 8 Hour] 2 tab PO BID 11/17/18 11/23/20 History diclofenac sodium 2 g TOPICAL QID PRN 11/23/20 11/23/20 History multivitamin 1 tab PO QAM 11/23/20 11/23/20 History oxycodone-acetaminophen [Percocet] 1 tab PO Q6H PRN 11/23/20 11/23/20 History Past Med/Surg History Medical History Anxiety Battery end of life of spinal cord stimulator placed 10 years ago, s/p battery revision/replacement 11/2018- patient advised to bring remote AM DOS/OR made aware Borderline high cholesterol Chronic back pain IN BACK Degenerative disc disease Encounter for pre-operative examination GERD (gastroesophageal reflux disease) Lumbar radiculopathy, chronic + postlaminectomy syndrome/controlled with SCS-TOTAL BACK SURGERIES X 3 Neuropathy + balance issues Osteoarthritis Post-op pain Surgical History H/O dilation and curettage 2013 - LMA #3 History of colonoscopy History of lumbar spinal fusion subsequent hardware removal History of meniscectomy of right knee repair of meniscus History of rotator cuff surgery right History of tonsillectomy Status post hardware removal Status post insertion of spinal cord stimulator 10 years ago; s/p battery revision/replacement 11/2018 (MAC sedation at [facility])/2019 Family History Son Family history of muscular dystrophy Family history of reaction to anesthesia FELT AWAKE DURING BACK SURGERY BUT COULDN'T VERBALIZE Other Past medical history not known due to adoption Social History Smoking Status: Former smoker Years Smoked: 20; Smoking End Date: QUIT 35 YRS AGO; Number of Years Since Quit: 30; Second Hand Exposure: Yes (FATHER SMOKED); Do You Dip or Chew Tobacco: No; Hx Alcohol Use: Yes Alcohol type: wine Hx Substance Use: Yes Preferred Language: Central African Communication Ability: Effective Visual Impairment: Limited Hearing Ability: Normal Beauty Counselor Required: No Beliefs That Will Affect Care: None marital status: Current Living Situation: Spouse current occupational status: retired 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 Other Information That Helps Us Care for You: No Feels Safe at Home: Yes Safety Concerns: Feels Safe At This Time Assistive Devices: Cane and Glasses Review of Systems Review of Systems: All systems reviewed & are unremarkable except as noted in HPI & below Constitutional: no fever, no chills and no sweats Respiratory: no cough and no dyspnea Cardiovascular: no chest pain, no dyspnea and no orthopnea Gastrointestinal: no abdominal pain, no nausea and no vomiting Musculoskeletal: as per Subjective / HPI Physical Exam Physical Exam: HT: 5ft 6.5in WT: 71.67 kg BP: 152/84 Constitutional: WD/WN, vitals as above no acute distress Respiratory: normal respiratory effort, lungs clear to auscultation no respiratory distress, no labored breathing and does not use accessory muscles Cardiovascular: RRR, no murmur, no edema Gastrointestinal (Abdomen): normal bowel sounds, soft, nontender, no hepatosplenomegaly Musculoskeletal: Knee: + knee abnormal to inspection (RIGHT KNEE- ), + effusion (+1 effusion), + limited ROM of knee (ROM 0/3/110), + knee ROM with crepitation, + joint line tenderness (medial joint line) and + Henrique's sign positive; no deformity, no skin erythema, no ecchymosis, no valgus laxity, no varus laxity, anterior drawer test negative, Ginette's sign negative and pivot shift test negative Results & Data Results & Data ([facility]) Diagnostic Findings Right Knee X-ray: Right knee series showing advanced degenerative changes to the right knee, narrowing of the medial compartment and patello-femoral joint with patellar spurring noted, findings showing joint space narrowing of the medial compartment and patello-femoral joint, osteophyte formation and subchondral sclerosis noted. anterior subluxed tibia on lateral view. overall varus alignment. no acute bony pathology noted.
--- NOTE | 2020-11-28 10:26 | PAT Medication Instructions ---
Medication Instructions Date of Service November 28, 2020 Home Medications atorvastatin 20 mg tablet 20 mg PO QAM calcium carbonate-vitamin D3 250 mg-125 unit tablet 1 tab PO BID citalopram 20 mg tablet 20 mg PO QAM fentanyl 25 mcg/hr transdermal patch 1 patch TD Q72H gabapentin 800 mg tablet 800 mg PO TID omega 8-svh-gww-fish oil 120 mg-180 mg-500 mg capsule 1 cap PO QAM omeprazole magnesium 20 mg tablet,delayed release 20 mg PO QPM acetaminophen [Tylenol 8 Hour] 2 tab PO BID diclofenac sodium 2 g TOPICAL QID PRN multivitamin 1 tab PO QAM oxycodone-acetaminophen [Percocet] 1 tab PO Q6H PRN Continue as directed fentanyl 25 mcg/hr transdermal patch 1 patch TD Q72H (just do not place patch near surgical site within 72 hours of surgery) diclofenac sodium 2 g TOPICAL QID PRN (just do not use on or near surgical site within 24 hours of surgery) STOP taking 2 weeks before surgery If surgery is within 2 weeks, stop taking as soon as possible. omega 5-lqi-wsw-fish oil 120 mg-180 mg-500 mg capsule 1 cap PO QAM DO NOT take the morning of surgery calcium carbonate-vitamin D3 250 mg-125 unit tablet 1 tab PO BID multivitamin 1 tab PO QAM Take morning of surgery With a small sip of water, OTHERWISE NOTHING TO EAT OR DRINK AFTER MIDNIGHT: atorvastatin 20 mg tablet 20 mg PO QAM citalopram 20 mg tablet 20 mg PO QAM gabapentin 800 mg tablet 800 mg PO TID acetaminophen [Tylenol 8 Hour] 2 tab PO BID (if needed, may be taken up to four hours before surgery) oxycodone-acetaminophen [Percocet] 1 tab PO Q6H PRN (if needed, may be taken up to four hours before surgery) Take evening before surgery calcium carbonate-vitamin D3 250 mg-125 unit tablet 1 tab PO BID gabapentin 800 mg tablet 800 mg PO TID omeprazole magnesium 20 mg tablet,delayed release 20 mg PO QPM acetaminophen [Tylenol 8 Hour] 2 tab PO BID oxycodone-acetaminophen [Percocet] 1 tab PO Q6H PRN (if needed) Insulin Dependent Diabetic Patients \ Other Notes If you have any questions please call us at [phone] or [phone] or [phone] or [phone]
--- NOTE | 2020-12-01 13:08 | Anesthesiology Consultation ---
Date of Service December 01, 2020 Assessment & Plan (1) Encounter for pre-operative examination: COVID Status: As of 12/01 assessment, patient denies travel to endemic area, known exposure/sick contacts, or symptoms of COVID19. Patient advised to adhere to social distancing guidelines, wear a mask in public and avoid large crowds or unnecessary travel in the 2 weeks leading up to surgery. Preoperative COVID19 testing to be completed prior to surgery per surgeon's arrangements. Patient encouraged to be extra cautious/conscientious with COVID precautions between COVID testing and surgery. Pt has spinal cord stimulator in situ, not a candidate for SAB. Discussed GA with AC block. Pt aware to bring SCS remote AM DOS. Chart Review Chart Review: Acceptable Risk for Surgery and Patient seen in Pre Admission Testing Teaching & Discussion Instructed NPO after midnight before surgery, except medications with 15 cc of water. Medication instructions provided according to the PAT guidelines. History Surgery Operation Date: 12/19/20 08:15 Proposed Procedures p Total Knee Arthroplasty - Ralph Maddox DO Height/Weight Height: 5 ft 6.5 in Weight: 74.7 kg Allergies Allergy/AdvReac Type Severity Reaction Status Date / Time contact metal agent Allergy Mild Rash Verified 11/23/20 12:28 morphine AdvReac Unknown "does not Verified 11/23/20 12:28 work for pain control" Medications Home Medications Medication Instructions Recorded Confirmed Last Taken atorvastatin 20 mg tablet 20 mg PO QAM 11/10/18 11/23/20 07/15/19 07:00 calcium carbonate-vitamin D3 250 1 tab PO BID tab 11/10/18 11/23/20 07/14/19 18:00 mg-125 unit tablet citalopram 20 mg tablet 20 mg PO QAM 11/10/18 11/23/20 07/15/19 07:00 fentanyl 25 mcg/hr transdermal 1 patch TD Q72H 11/10/18 11/23/20 07/15/19 07:00 patch gabapentin 800 mg tablet 800 mg PO TID 11/10/18 11/23/20 07/15/19 07:00 omega 2-jce-qwp-fish oil 120 1 cap PO QAM cap 11/10/18 11/23/20 07/01/19 07:00 mg-180 mg-500 mg capsule omeprazole magnesium 20 mg 20 mg PO QPM 0511/23/20 07/15/19 07:00 tablet,delayed release acetaminophen [Tylenol 8 Hour] 2 tab PO BID 11/17/18 11/23/20 07/15/19 07:00 diclofenac sodium 2 g TOPICAL QID PRN 11/23/20 11/23/20 Unknown multivitamin 1 tab PO QAM 11/23/20 11/23/20 Unknown oxycodone-acetaminophen [Percocet] 1 tab PO Q6H PRN 11/23/20 11/23/20 Unknown Past Medical History Medical History (Updated 12/05/20 @ 08:25 by Adilson Aranda) Anxiety Borderline high cholesterol Chronic back pain IN BACK Degenerative disc disease Encounter for pre-operative examination GERD (gastroesophageal reflux disease) Lumbar radiculopathy, chronic + postlaminectomy syndrome/controlled with SCS-TOTAL BACK SURGERIES X 3 Neuropathy + balance issues Osteoarthritis Post-op pain Has been an issue with previous surgeries; pt reports morphine does NOT work for her. Spinal cord stimulator status Initially placed 10 years ago, s/p battery revision/replacement 11/2018- patient advised to bring remote AM DOS/OR made aware. Exercise / Class Metabolic Activity II 4-5 Yardwork/Stairs/Walk up hill (Uses cane outdoors or in public spaces, limited by pain but can do 1 FOS without CP or SOB, slowly) Past Family History Family History Son Family history of muscular dystrophy Family history of reaction to anesthesia FELT AWAKE DURING BACK SURGERY BUT COULDN'T VERBALIZE Other Past medical history not known due to adoption Past Surgical History Surgical History H/O dilation and curettage 2013 - LMA #3 History of colonoscopy History of lumbar spinal fusion subsequent hardware removal History of meniscectomy of right knee repair of meniscus History of rotator cuff surgery right History of tonsillectomy Status post hardware removal Status post insertion of spinal cord stimulator 10 years ago; s/p battery revision/replacement 11/2018 (MAC sedation at [facility])/2018 Past Anesthesia History No Hx of Anesthesia Complications and No Family Hx of Anesthesia Complications (other than son having awareness) History of PONV No Hx of PONV and No Hx of Motion Sickness Social History Smoking Status: Former smoker tobacco type: cigarettes Do You Dip or Chew Tobacco: No Smoking End Date: QUIT 35 YRS AGO Hx Alcohol Use: Yes Alcohol type: wine alcohol intake frequency: holidays/special occasions only Substance Use Type Other:: tried medical cannibis Review of Systems Pt denies any recent chest pain, shortness of breath, palpitations, cough, fever, URI, or uncontrolled acid reflux. Physical Exam Vital Signs BP: 139/87 P: 74bpm SPO2: 95% RA T: 98.4 F R: 16 ENMT Mouth: + dental restorations (many crowns); no chipped teeth and no loose teeth Thyromental Distance: > or= 3.5 Finger Breadths Mallampati Class: III Neck normal visual inspection and + limited neck extension Respiratory normal respiratory effort, lungs clear to auscultation Cardiovascular RRR, no murmur, no edema Vessels: no carotid bruit Lab Results Anesthesia Preop Results Results Anesthesia Widget: WBC 7.09 K/uL (4.8-10.8) 12/01/20 Hgb 11.9 g/dL (12.0-16.0) L 12/01/20 Hct 38.1 % (37-47) 12/01/20 Plt 305 K/uL (130-400) 12/01/20 Na 137 mmol/L (136-145) 12/01/20 K 4.7 mmol/L (3.5-5.1) 12/01/20 Cl 105 mmol/L (98-107) 12/01/20 CO2 29 mmol/L (21-32) 12/01/20 BUN 19 mg/dl (7-18) H 12/01/20 Creat 0.55 mg/dl (0.6-1.2) L 12/01/20 Glucose Level 78 mg/dl (70-99) 12/01/20 PT 9.7 Seconds (9.0-12.0) 12/01/20 PTT 28.4 Seconds (21.0-31.0) 12/01/20 INR 1.0 (0.9-1.1) 12/01/20 HA1c 5.9 % (4.5-5.6) H 12/01/20 Urine Color Yellow 12/01/20 Urine Appearance Clear (Clear) 12/01/20 Urine pH 5.5 (4.5-7.5) 12/01/20 Urine Specific [place] 1.017 (1.000-1.030) 12/01/20 Urine Protein Negative (Negative) 12/01/20 Urine Glucose (UA) Negative (Negative) 12/01/20 Urine Ketones Negative (Negative) 12/01/20 Urine Blood Negative (Negative) 12/01/20 Urine Nitrite Negative (Negative) 12/01/20 Urine Bilirubin Negative (Negative) 12/01/20 Urine Urobilinogen Negative (Negative) 12/01/20 Urine Leukocyte Esterase Negative (Negative) 12/01/20 Blood Type A Positive 12/01/20 Antibody Screen NEGATIVE 12/01/20 Testing Electrocardiogram Date: 12/01/20 Findings: + NSR @ (67bpm) and + no change from (2018) Chest X-Ray Date: 12/01/20 Findings: + NAD
[~2020-12-19 08:51] MED LIST changes: +BUPIVACAINE 0.25% 30 ML VIAL ONE; +BUPIVACAINE 0.5 % 5 MG/1 ML PF 10ML VIAL ONE; -CEFAZOLIN 1000MG 1,000 MG/7.5 ML SYR IV SCH; +DEXAMETHASONE SOD INJ 4 MG/ML VIAL ONE; +EPINEPHrine INJ 1 MG/ML AMP ONE; +FAMOTIDINE 20 MG TAB PO SCH; +METOCLOPRAMIDE HCL 10 MG TABLET PO SCH; +ROPIVACAINE 0.5% HCL/PF 150 MG, BUPIVACAINE 0.75% MPF 20 ML, EPINEPHrine 30MG/30ML (OR ... INSTIL SCH; +TRANEXAMIC ACID 1,000 MG **IV Intra-op IV SCH; +TRANEXAMIC ACID 1,000 MG **IV Pre-op IV SCH; +ceFAZolin 1000MG 1,000 MG/7.5 ML SYR IV SCH; +dexAMETHasone 4 MG TAB PO SCH
--- NOTE | 2020-12-19 09:48 | History & Physical Bridge Note ---
Date of Service December 19, 2020 History & Physical Bridge Note I have examined the patient, reviewed the History & Physical and in the interval since the performance of the History & Physical I have noted the following changes of clinical significance: no changes noted
[2020-12-19] MEDS ORDERED: ONDANSETRON INJ 2 MG/ML 2 ML VIAL ONE (10:04)
[2020-12-19] MEDS ORDERED: DEXAMETHASONE SOD INJ 4 MG/ML VIAL ONE (10:04)
[2020-12-19] MEDS ORDERED: LIDOCAINE 2% 2 ML VIAL/AMP(20MG/ML) INFIL ONE (10:04)
[2020-12-19] MEDS ORDERED: PROPOFOL IV EMULSION 10 MG/ML 20 ML VIAL IV ONE (10:04)
[2020-12-19] MEDS ORDERED: MIDAZOLAM HCL 1 MG/ML 2ML VIAL ONE (10:04)
[2020-12-19] MEDS ORDERED: fentaNYL citrate 100 MCG/2 ML VIAL ONE ×3 (10:05→13:24)
[2020-12-19] MEDS ORDERED: ORTHO JOINT ANESTHETIC ONE (11:30)
[2020-12-19] MEDS ORDERED: fentaNYL citrate 100 MCG/2 ML VIAL IV PRN (12:54)
[2020-12-19] MEDS ORDERED: ONDANSETRON INJ 2 MG/ML 2 ML VIAL IV PRN ×2 (12:54→15:22)
[2020-12-19] MEDS ORDERED: ePHEDrine sulfate 50 MG/ML AMP IV PRN (12:54)
[2020-12-19] MEDS ORDERED: ATROPINE SULFATE 0.1 MG/ML 10ML SYR IV PRN (12:54)
--- NOTE | 2020-12-19 13:04 | Operative Report ---
Post Operative Report Pre & Post Diagnosis Operation Date: 12/19/20 11:05 Pre-Op Diagnosis: Unilateral Primary Osteoarthritis Knee Right Post-Op Diagnosis: Unilateral Primary Osteoarthritis Knee Right I identified the patient and participated in the time-out.: Yes Procedure Operation Date: 12/19/20 11:05 Actual Procedures p Right Total Knee Arthroplasty(Right) utilizing [employer] Copilot journey 2 nonblock total knee arthroplasty size 4 femur 3 tibia 9 polyethylene 29 oval patella- Ralph Maddox DO Surgeon Ralph Maddox DO Electric Arc Furnace Operator Beka PAZ Estimated Blood Loss 5 Findings Consistent with Post-Op Diagnosis Patient presents with severe end-stage tricompartmental degenerative joint disease right knee no response to conservative management patient had eburnated [id number] subchondral sclerosis marginal osteophytes varus alignment with moderate to large effusion Specimens Bone and cartilage Drains Medium bore Hemovac Anesthesia Type General Regional Complications none Disposition Accompanied Patient To Recovery: No Disposition: Recovery Room Indications Patient presents with severe end-stage tricompartmental degenerative joint disease nonresponse to conservative management patient failed attempts of Visco supplementation corticosteroid injection relative rest activity modification the above findings were noted Description of Procedure After proper prepping and draping of the Right lower extremity anterior midline incision was made over the region of the extensor extensor mechanism after meticulous hemostasis was obtained and maintained in subcutaneous tissues a medial parapatellar incision was made The patella was subluxed lateralward the medial lateral gutter were cleaned from any hypertrophic synovitis and scar tissue of the distal femoral block was placed and the distal femoral osteotomy cut was made subsequently the chamfers anterior and posterior osteotomy cuts were made utilizing the 4-in-1 block the tibia was subsequently subluxed anteriorward medial and ateral meniscal remnants were excised in their entirety remnants of the anterior and posterior cruciate ligaments were excised in their entirety excellent exposure of the proximal tibia was obtained the tibial osteotomy guide was placed on the proximal tibial osteotomy cut was made once again the knee was irrigated with copious amounts of sterile saline solution the patella was subsequently everted lateralward thickened scar tissue around the patella was removed the patella was subsequently cut utilizing a freehand technique and was drilled prepared for final preparation and placement of patella socially flexion-extension gaps were checked and the equal and symmetric trials were placed to the appropriate femoral and tibial trials with poly-spacer being placed for equal flexion and extension gaps and full range of motion including extension to 0 and flexion to 140 the trial components after having been taken to recovery range of motion was subsequently removed meticulous hemostasis was obtained and maintained subsequently a knee block injection of joint cocktail including ropivacaine 0.5% 150 mg. Bupivacaine 0.5% epinephrine 1-200,030 mL's toradol 30 mg dexamethasone 4 mg ketamine 10 mg clonidine 100 micrograms normal saline solution 30 mg was infiltrated into the soft tissues of the posterior knee medial lateral gutters and periosteal synovium special attention was paid to protect neurovascular structures at all times subsequently trial components having been removed the knee was irrigated with sterile saline solution. debris was removed the proximal tibia was subsequently prepared and was made ready for the placement of the tibial component tibial component was also cemented and tamped into position the femoral component was subsequently placed and cemented in the position the patellar component was subsequently cemented in position because hemostasis once again obtained and maintained wound having been thoroughly irrigated with debridement and debridement lavage was performed as well as a medial parapatellar incision closed with #1 Vicryl in interrupted fashion subcutaneous was closed with #2 Vicryl skin was closed with skin clips. PA-C was necessary for prepping and drapping as well as wound closure of deep fascia Sub cutaneous tissue and skin and was necessary for the case. A sterile compressive dressing was placed patient was taken to recovery in stable condition of report dictated by Tan I attest to the content of the Intraoperative Record and any orders documented therein. Any exceptions are noted below. I attest to the content of the Intraoperative Record and any orders documented therein. Any exceptions are noted below.
[2020-12-19] MEDS ORDERED: KETAMINE 50 MG/5 ML SYRINGE ONE (13:25)
--- NOTE | 2020-12-19 13:52 | Anesthesiology Progress Note ---
Date of Service December 19, 2020 Anesthesia Post Procedure Vital Signs Vital Signs: Temp Pulse Resp BP Pulse Ox 12/19/20 09:35 36.7 C 76 18 175/86 H 99 Pain Intensity Right Knee: Pain Intensity: 4 Transfer of Care Handoff Completed per policy Notes Mental Status: alert / awake / arousable Patient Amnestic to Procedure: Yes Nausea / Vomiting: adequately controlled Pain: adequately controlled Airway Patency, RR, SpO2: stable & adequate BP & HR: stable & adequate Hydration State: stable & adequate Anesthetic Complications: no major complications apparent
--- NOTE | 2020-12-19 14:13 | XRay Report ---
RIGHT KNEE 2 VIEWS History: Right total knee arthroplasty. Degenerative arthritis. Postop. FINDINGS: The patient is status post a right total knee arthroplasty. The hardware is intact. No frac ture or dislocation. Surgical drains are in place. IMPRESSION: Right total knee arthroplasty. No evidence for hardware complication. ACT 112: Negative or not required by law. Electronically signed by: Main Lacey M.D. 12/19/2020 2:12 PM
[2020-12-19] MEDS ORDERED: diphenhydrAMINE Capsule 25 MG CAP PO PRN (15:22)
[2020-12-19] MEDS ORDERED: NALOXONE HCL 0.4 MG/1 ML VIAL/CARP IV PRN (15:22)
[2020-12-19] MEDS ORDERED: oxyCODONE HCL IR 5 MG TAB (IMMEDIATE RELEASE) PO PRN (15:22)
[2020-12-19] MEDS ORDERED: METOCLOPRAMIDE HCL INJ 5 MG/ML 2 ML VIAL IV PRN (15:22)
[2020-12-19] MEDS ORDERED: MAGNESIUM HYDROXIDE SUSP 30 ML UDC PO PRN (15:22)
[2020-12-19] MEDS ORDERED: bisacodyL 10 MG SUPP PR PRN (15:22)
[2020-12-19] MEDS ORDERED: SODIUM CHLORIDE 0.9% 1000ML 1,000 ML IV SCH (15:22)
[2020-12-19] MEDS ORDERED: HYDROmorphone INJ 1 MG/ML SYRINGE IV PRN (15:22)
[2020-12-19] MEDS: GABAPENTIN 800 MG TAB PO SCH ×2 (17:02→20:19)
[2020-12-19] MEDS: KETOROLAC TROMETHAMINE 15 MG/ML VIAL IV SCH ×2 (17:04→22:58)
[2020-12-19] MEDS: ceFAZolin 1000MG 1,000 MG/7.5 ML SYR IV SCH (20:18)
[2020-12-19] MEDS: ASPIRIN 81 MG ECTAB PO SCH (20:18)
[2020-12-19] MEDS: DOCUSATE SODIUM 100 MG CAP PO SCH (20:19)
[2020-12-19] MEDS: CALCIUM 600MG + VIT D 400 IU TAB PO SCH (20:19)
[2020-12-19] MEDS ORDERED: SENNA 8.6 MG TAB PO SCH (21:00)
[2020-12-19] MEDS: CHECK fentaNYL PATCH PLACEMENT SCH (22:58)
[2020-12-19] MEDS: ACETAMINOPHEN 500 MG TAB PO SCH (22:58)
[2020-12-20] MEDS: ceFAZolin 1000MG 1,000 MG/7.5 ML SYR IV SCH (03:14)
[2020-12-20] MEDS: ACETAMINOPHEN 500 MG TAB PO SCH ×2 (05:47→13:04)
[2020-12-20] MEDS: KETOROLAC TROMETHAMINE 15 MG/ML VIAL IV SCH ×2 (05:48→11:14)
[2020-12-20 06:18] LABS: Hematocrit (blood only) 36.2 % (37-47); Hemoglobin 11.5 g/dL (12.0-16.0); Mean Corpuscular Hemoglobin 28.3 pg (25-34); Mean Corpuscular Hgb Conc 31.8 g/dL (32-36); Mean Corpuscular Volume 88.9 fL (80-100); Mean Platelet Volume 10.7 fL (7.4-10.4); Platelet Count 289 K/uL (130-400); RDW Coefficient of Variation 14.5 % (11.5-14.5); RDW Standard Deviation 47.4 fL (36.4-46.3); Red Blood Count 4.07 M/uL (4.2-5.4); White Blood Count 14.23 K/uL (4.8-10.8)
[2020-12-20 06:35] LABS: BUN Creatinine Ratio 30.6 (10-20); Calcium 9.1 mg/dl (8.5-10.1); Creatinine Clr Calc Pharmacy 81.1 ml/min; Est GFR (African American) 102.4 ml/min; Est GFR (Non-African American) 88.4 ml/min; Potassium 4.2 mmol/L (3.5-5.1)
--- NOTE | 2020-12-20 08:21 | Orthopedic Progress Note ---
Date of Service December 20, 2020 Assessment & Plan (1) Arthritis of right knee: Postop day 1 status post right total knee arthroplasty PT/OT protocols. Weightbearing as tolerated. DVT prophylaxis-aspirin p.o. twice daily, SCDs, GEOFF najera Pain management as written. DC planning-patient is considering home health services upon discharge. Admission and Anticipated Discharge Date Admission Date: December 19, 2020 Subjective Postop day 1 Patient sitting up in her chair at the bedside. Mild pain in the knee this morning but she states it is actually better than what she expected. She has been up to the bathroom several times with her walker. Denies shortness of breath, chest pain, lightheadedness. Physical Exam Physical Exam: Dressings are clean, dry, and intact. Calves are soft nontender. Neurovascular intact. Toes are mobile. Hemovac drainage was 75 mL from previous shift. Results & Data ([facility]) Vital Signs (Past 12 Hours) Vital Signs Temp Pulse Resp BP Pulse Ox 12/20/20 07:49 36.7 C 81 18 126/69 97 12/20/20 03:33 36.5 C 69 18 126/72 96 12/19/20 23:22 36.5 C 72 16 135/77 99 Laboratory Results Laboratory Results WBC 14.23 K/uL (4.8-10.8) H 12/20/20 05:49 RBC 4.07 M/uL (4.2-5.4) L 12/20/20 05:49 Hgb 11.5 g/dL (12.0-16.0) L 12/20/20 05:49 Hct 36.2 % (37-47) L 12/20/20 05:49 MCV 88.9 fL (80-100) 12/20/20 05:49 MCH 28.3 pg (25-34) 12/20/20 05:49 MCHC 31.8 g/dL (32-36) L 12/20/20 05:49 RDW Std Deviation 47.4 fL (36.4-46.3) H 12/20/20 05:49 RDW Coeff of Licha 14.5 % (11.5-14.5) 12/20/20 05:49 Plt Count 289 K/uL (130-400) 12/20/20 05:49 MPV 10.7 fL (7.4-10.4) H 12/20/20 05:49 Sodium 139 mmol/L (136-145) 12/20/20 05:49 Potassium 4.2 mmol/L (3.5-5.1) 12/20/20 05:49 Chloride 106 mmol/L (98-107) 12/20/20 05:49 Carbon Dioxide 28 mmol/L (21-32) 12/20/20 05:49 Anion Gap 5.0 (3-11) 12/20/20 05:49 BUN 19 mg/dl (7-18) H 12/20/20 05:49 Creatinine 0.63 mg/dl (0.6-1.2) 12/20/20 05:49 Est Cr Clr Drug Dosing 81.1 ml/min 12/20/20 05:49 Est GFR ( Amer) 102.4 ml/min 12/20/20 05:49 Est GFR (Non-Af Amer) 88.4 ml/min 12/20/20 05:49 BUN/Creatinine Ratio 30.6 (10-20) H 12/20/20 05:49 Glucose 111 mg/dl (70-99) H 12/20/20 05:49 Calcium 9.1 mg/dl (8.5-10.1) 12/20/20 05:49 COVID-19 Eval Order Covid19 IDNow [facility] 12/19/20 09:05 SARS-CoV-2, RNA, NAAT NEGATIVE (NEGATIVE) 12/19/20 09:05 Impressions Knee X-Ray 12/19/20 13:48 RIGHT KNEE 2 VIEWS History: Right total knee arthroplasty. Degenerative arthritis. Postop. FINDINGS: The patient is status post a right total knee arthroplasty. The hardware is intact. No fracture or dislocation. Surgical drains are in place. IMPRESSION: Right total knee arthroplasty. No evidence for hardware complication. ACT 112: Negative or not required by law. Electronically signed by: Main Lacey M.D. 12/19/2020 2:12 PM
[2020-12-20] MEDS: CHECK fentaNYL PATCH PLACEMENT SCH (08:31)
[2020-12-20] MEDS: CALCIUM 600MG + VIT D 400 IU TAB PO SCH (08:32)
[2020-12-20] MEDS: DOCUSATE SODIUM 100 MG CAP PO SCH (08:32)
[2020-12-20] MEDS: ASPIRIN 81 MG ECTAB PO SCH (08:32)
[2020-12-20] MEDS: GABAPENTIN 800 MG TAB PO SCH ×2 (08:33→13:04)
[2020-12-20] MEDS ORDERED: CITALOPRAM 20 MG TAB PO SCH (09:00)
[2020-12-20] MEDS ORDERED: ATORVASTATIN 20 MG TAB PO SCH (09:00)
[2020-12-20] MEDS ORDERED: MULTIVITAMIN TAB PO SCH (09:00)
--- NOTE | 2020-12-20 12:04 | Discharge Summary ---
Date of Service date of discharge: December 20, 2020 date of admission: 12-19-20 Admission HPI Per Admitting Provider Ms Kulkarni is a 72 year old female who complains of right knee pain, presents for pre-op evaluation prior to a right total knee replacement by Dr Maddox at [facility]. she complains of pain and stiffness in the right knee. Currently the patient states that the symptoms are moderate-severe and rated as 6/10. The pain is described as aching, sharp and throbbing. The symptoms are aggravated by ascending stairs, daily activities, first steps while awake walking. Prior NSAIDs include Ibuprofen, Aleve and Diclofenac. she has been treated with previous cortisone injections in the past without much relief. she also underwent Right knee arthroscopy with partial medial meniscectomy partial lateral meniscectomy chondroplasty medial femoral condyle patellofemoral joint on 05/19/2019 Principal Diagnosis right knee arthritis Discharge Exam Vital Signs Temp 36.5 C 12/20/20 11:21 Pulse 65 12/20/20 11:21 Resp 18 12/20/20 11:21 BP 130/77 12/20/20 11:21 Pulse Ox 97 12/20/20 11:21 Intake & Output 12/19/20 12/20/20 12/20/20 18:59 06:59 18:59 Intake Total 1500 / 2575 1075 / 2575 Output Total 615 / 1290 675 / 1290 Balance 885 / 1285 400 / 1285 Weight 73.346 kg Intake: IV 100 / 435 335 / 435 Lactated Ringer's 1,000 ml @ 15 0 / 0 mls/hr IV .Q24H [facility] Rx#: [id number] Sodium Chloride 0.9% 1000ML 1, 335 / 335 000 ml @ 100 mls/hr IV .Q10H [facility] Rx#:[id number] Tranexamic Acid / 0.7% NaCl 1, 100 / 100 000 mg In 100 ml @ 600 mls/hr IV TODAY@0600 [facility] Rx#:[id number] IV Perioperative 1400 / 1400 Oral 740 / 740 Output: Urine 500 / 1050 550 / 1050 Estimated Blood Loss 5 / 5 Drain Output 110 / 235 125 / 235 Right Knee Hemovac 110 / 235 125 / 235 Other: # Unmeasured Voids 1 Weight Measurement Method Standing Scale Constitutional WD/WN, vitals as above no acute distress Musculoskeletal right knee: NVDI, calf SNT, negative rios sign. DP palpable, able to wiggle toes/ankle movement without difficulty. dressing clean dry and intact. Vital Signs Temp 36.5 C 12/20/20 11:21 Pulse 65 12/20/20 11:21 Resp 18 12/20/20 11:21 BP 130/77 12/20/20 11:21 Pulse Ox 97 12/20/20 11:21 Intake & Output 12/19/20 12/20/20 12/20/20 18:59 06:59 18:59 Intake Total 1500 / 2575 1075 / 2575 Output Total 615 / 1290 675 / 1290 Balance 885 / 1285 400 / 1285 Weight 73.346 kg Intake: IV 100 / 435 335 / 435 Lactated Ringer's 1,000 ml @ 15 0 / 0 mls/hr IV .Q24H [facility] Rx#: [id number] Sodium Chloride 0.9% 1000ML 1, 335 / 335 000 ml @ 100 mls/hr IV .Q10H [facility] Rx#:[id number] Tranexamic Acid / 0.7% NaCl 1, 100 / 100 000 mg In 100 ml @ 600 mls/hr IV TODAY@0600 [facility] Rx#:[id number] IV Perioperative 1400 / 1400 Oral 740 / 740 Output: Urine 500 / 1050 550 / 1050 Estimated Blood Loss 5 / 5 Drain Output 110 / 235 125 / 235 Right Knee Hemovac 110 / 235 125 / 235 Other: # Unmeasured Voids 1 Weight Measurement Method Standing Scale Laboratory Results WBC 14.23 K/uL (4.8-10.8) H 12/20/20 05:49 RBC 4.07 M/uL (4.2-5.4) L 12/20/20 05:49 Hgb 11.5 g/dL (12.0-16.0) L 12/20/20 05:49 Hct 36.2 % (37-47) L 12/20/20 05:49 MCV 88.9 fL (80-100) 12/20/20 05:49 MCH 28.3 pg (25-34) 12/20/20 05:49 MCHC 31.8 g/dL (32-36) L 12/20/20 05:49 RDW Std Deviation 47.4 fL (36.4-46.3) H 12/20/20 05:49 RDW Coeff of Licha 14.5 % (11.5-14.5) 12/20/20 05:49 Plt Count 289 K/uL (130-400) 12/20/20 05:49 MPV 10.7 fL (7.4-10.4) H 12/20/20 05:49 Sodium 139 mmol/L (136-145) 12/20/20 05:49 Potassium 4.2 mmol/L (3.5-5.1) 12/20/20 05:49 Chloride 106 mmol/L (98-107) 12/20/20 05:49 Carbon Dioxide 28 mmol/L (21-32) 12/20/20 05:49 Anion Gap 5.0 (3-11) 12/20/20 05:49 BUN 19 mg/dl (7-18) H 12/20/20 05:49 Creatinine 0.63 mg/dl (0.6-1.2) 12/20/20 05:49 Est Cr Clr Drug Dosing 81.1 ml/min 12/20/20 05:49 Est GFR ( Amer) 102.4 ml/min 12/20/20 05:49 Est GFR (Non-Af Amer) 88.4 ml/min 12/20/20 05:49 BUN/Creatinine Ratio 30.6 (10-20) H 12/20/20 05:49 Glucose 111 mg/dl (70-99) H 12/20/20 05:49 Calcium 9.1 mg/dl (8.5-10.1) 12/20/20 05:49 COVID-19 Eval Order Covid19 IDNow [facility] 12/19/20 09:05 Hepatitis C Ab Screen Neg (Neg) 12/20/20 05:49 SARS-CoV-2, RNA, NAAT NEGATIVE (NEGATIVE) 12/19/20 09:05 Impressions Knee X-Ray 12/19/20 13:48 RIGHT KNEE 2 VIEWS History: Right total knee arthroplasty. Degenerative arthritis. Postop. FINDINGS: The patient is status post a right total knee arthroplasty. The hardware is intact. No fracture or dislocation. Surgical drains are in place. IMPRESSION: Right total knee arthroplasty. No evidence for hardware complication. ACT 112: Negative or not required by law. Electronically signed by: Main Lacey M.D. 12/19/2020 2:12 PM Discharge Data Allergies Allergy/AdvReac Type Severity Reaction Status Date / Time contact metal agent Allergy Intermediate Rash Verified 12/19/20 09:15 morphine AdvReac Intermediate "does not Verified 12/19/20 09:15 work for pain control" Procedures Performed Operation Date: 12/19/20 11:05 Actual Procedures p Right Total Knee Arthroplasty(Right) - Ralph Maddox DO Ordered Studies 12/19/20 05:00 US - OR guided needle placemen Routine Hospital Course (1) Arthritis of right knee: Postop day 1 status post right total knee arthroplasty PT/OT protocols. Weightbearing as tolerated. DVT prophylaxis-aspirin p.o. twice daily, SCDs, GEOFF najera Pain management as written. DC planning-patient is considering home health services upon discharge. Total Time Total Time Spent Total Time Spent (In Minutes): 20 Total Time Includes: Examination of the Patient, Discharge Planning and Medication Reconciliation Discharge Plan Discharge Items Patient Disposition: Home - Home Health Services Reason For Visit: Unilateral Primary Osteoarthritis Knee Right Discharge Diagnosis: right total knee replacement Condition on Discharge: Good Activity: Per Instructions section Lifting: Wait until after follow-up appointment Weightbearing: Right weightbearing Weightbearing Comment: WBAT with walker Non-emergency contact: Surgeon Call non-emergency contact if: you have any medication questions, your temperature is above 101, your wound has increased redness, your wound has increased drainage and your wound pain has increased Follow-up/Referrals: Chepe Blanc DO [Primary Care Provider] - Diet: Regular Addtl Attending Provider Instructions: ACTIVITY RECOMMENDATIONS: SELF CARE INSTRUCTIONS AFTER TOTAL KNEE REPLACEMENT A. You may need to continue a physical therapy program after discharge from the hospital. There are several options available to you. Your doctor will assist you in selecting the best one for you. 1. An out-patient facility 2 to 3 times a week for therapy or home therapy. 2. Continue working on all exercises taught to you in the hospital. Your goals should be to increase bending of your knee to 90 degrees and beyond and to fully straighten your knee. B. You may progress at your own pace from walking with a walker or crutches to a cane; then to no assistive devices. C. Make walking a part of your daily routine. Be up as much as comfortable with rest periods throughout the day. Rest with leg elevation is very important. Use the ice wrap frequently for the first 3-4 weeks. D. There are no restrictions on activities. You may ride in a car, shop, participate in police stenographer and all social activities. E. Wear the long elastic stockings (GEOFF hose) 20 hours a day for 2 weeks after surgery. They can be removed several times a day for laundering and for a bath. F. You may shower, no tub baths until cleared by your doctor. SPECIAL CARE INSTRUCTIONS: VERY IMPORTANT TO READ AND REVIEW A. There are a few signs you need to watch for after you are home. Call [facility] [place] if you notice any of the followin. Increased severe knee pain. Some pain is expected especially when you exercise. 2. Increased swelling in your leg or knee; pain or swelling of the calf muscle in either lower leg. 3. Any fluid drainage from the incision. 4. Shortness of breath or chest pain. B. Please call [facility] at if you have any concerns or questions about your operation or recovery. The doctor or his nurse will return your call promptly. C. You must take antibiotics before dental work, bladder, bowel or other surgery. Your doctor will provide you with a permanent care to carry describing this precaution. IMPORTANT: * REMEMBER TO TAKE ASPIRIN, 81 MG, TWICE DAILY FOR 4 WEEKS UNLESS OTHERWISE DIRECTED. THIS IS YOUR BLOOD THINNER. * HIGH RISK PATIENTS MAY BE PRESCRIBED A STRONGER BLOOD THINNER. THIS WILL BE PROVIDED AT DISCHARGE. * CALL IF INCREASED PAIN, REDNESS, DRAINAGE OR FEVER GREATER THAT 101. * WEAR GEOFF HOSE 20 HOURS PER DAY FOR 2 WEEKS. * DERMABOND Prineo- This is a mesh tape dressing that is covered with glue. It should remain in place until the incision is properly healed, usually 10-14 days. This dressing is designed to naturally slough off. You may trim the excess mesh tape as it peels off. Incision may be briefly wet in a shower. Dry immediately by blotting with a clean, dry towel. Do not bath or swim until instructed by your doctor. Do not scratch, rub, or pick at the dressing. Do not apply any topical ointments or lotions until dressing is completely removed and/or instructed by your doctor. There may be a small piece of suture material at one end of your incision. Do not pull or trim this. If it is bothersome or catching on clothing, you may cover it with a band-aid. IF INCISION IS LEAKING THROUGH DRESSING, CALL THE OFFICE . FOLLOW UP VISIT: If appointment is not already scheduled: Please call [facility] [place] to make a follow-up appointment for 2 weeks after your surgery at . Pending Studies at Discharge: No Stand-Alone Forms: My [facility] [place], Smoking Cessation Medications and DC Order Prescriptions: New celecoxib [Celebrex] 200 mg Capsule 200 mg PO BID 30 Days Qty: 60 RF: 0 aspirin 81 mg Tablet,Delayed Release (Dr/Ec) 81 mg PO BID 30 Days Qty: 60 RF: 0 acetaminophen 500 mg Tablet 1,000 mg PO Q8 21 Days Qty: 126 RF: 0 oxycodone 5 mg Tablet 5 - 10 mg PO Q6H PRN (Reason: pain) Qty: 30 RF: 0 docusate sodium 100 mg Capsule 100 mg PO BID 10 Days Qty: 20 RF: 0 cefadroxil 500 mg capsule 500 mg PO BID 14 Days Qty: 28 RF: 0 Continued fentanyl 25 mcg/hr patch 72 hour 1 patch TD Q72H RF: 0 gabapentin 800 mg tablet 800 mg PO TID RF: 0 Prilosec OTC 20 mg tablet,delayed release (DR/EC) 20 mg PO QPM RF: 0 citalopram [Celexa] 20 mg tablet 20 mg PO QAM RF: 0 atorvastatin [Lipitor] 20 mg tablet 20 mg PO QAM RF: 0 calcium carbonate-vitamin D3 250-125 mg-unit tablet 1 tab PO BID RF: 0 multivitamin Tablet 1 tab PO QAM RF: 0 diclofenac sodium 1 % Gel 2 g TOPICAL QID PRN (Reason: Pain) RF: 0 Discontinued Fish Oil 120-180-500 mg capsule 1 cap PO QAM RF: 0 acetaminophen [Tylenol 8 Hour] 650 mg Tablet Extended Release 2 tab PO BID RF: 0 oxycodone-acetaminophen [Percocet] 5-325 mg Tablet 1 tab PO Q6H PRN (Reason: Pain) RF: 0 Discharge Orders: Discharge Order (Routine); Ordered 12/20/20 Ordered By: Beka Sepulveda Admission Data Admit Date/Time: 12/19/20 13:48 Attending Provider: Ralph Maddox Admit Provider: Ralph Maddox Primary Care Provider: Chepe Blanc Other Providers: [facility]
[2020-12-20] MEDS ORDERED: CeleBREX 200 MG CAP PO SCH (21:00)
[2020-12-21] MEDS ORDERED: fentaNYL 25 MCG/HR TDSY TD SCH (09:00)
== END 2020-12-20 14:59 | disposition home health service (06) ==
LOC: ASU 08:51 → 3E 08:51